=== PATIENT | female | born 1940 | race Caucasian/White ===

== ENCOUNTER 2018-09-04 00:06 | Observation (INO) | payer OTHER ==
--- OUTSIDE RECORDS SUMMARY | 2018-09-04 00:08 | XMS REPORT | Clinical Summary ---
:1940 Author Organization [facility] [employer] Address [address] [place] [address] Care Team Providers Name Role Phone Corazon Singh MD Primary Care Provider Allergies Active Allergy Reactions Severity Noted Date Comments Adhesive 07/12/2016 Rash, tears, Sulfa (Sulfonamide Antibiotics) 07/12/2016 Medications Medication Sig Dispensed Refills Start Date End Date Status lisinopril-hydrochlorot Take 1 tablet by 0 Active hiazide mouth daily. (PRINZIDE,ZESTORETIC) 10-12.5 mg per tablet lovastatin (MEVACOR) 20 Take 20 mg by 0 Active MG tablet mouth nightly. thyroid, pork, (ARMOUR Take 30 mg by 0 Active THYROID) 30 mg Tab mouth daily. levothyroxine Take 25 mcg by 0 Active (SYNTHROID, LEVOTHROID) mouth Every 25 MCG tablet morning on an empty stomach. bimatoprost (LUMIGAN) Place 1 drop into 0 Active 0.01 % Drop ophthalmic both eyes solution nightly. brimonidine-timolol 1 drop 2 (two) 0 Active (COMBIGAN) 0.2-0.5 % times daily. ophthalmic solution exemestane (AROMASIN) Take 25 mg by 0 Active 25 mg tablet mouth daily. multivitamin per tablet Take 1 tablet by 0 Active mouth daily. ferrous sulfate 325 (65 Take 325 mg by 0 Active FE) MG tablet mouth daily with breakfast. biotin 1 mg tablet Take 1,000 mcg by 0 Active mouth 3 (three) times daily. cranberry 500 mg Cap Take by mouth. 0 Active calcium Take 1 tablet by 0 Active carbonate-vitamin D3 mouth 2 (two) (CALCIUM-VITAMIN D) 500 times daily with mg(1,250mg) -200 unit breakfast and per tablet dinner. coenzyme Q10 100 mg Take 100 mg by 0 Active capsule mouth daily. cyanocobalamin (VITAMIN Take 1,000 mcg by 0 Active B-12) 1000 MCG tablet mouth daily. pyridoxine, vitamin B6, Take 100 mg by 0 Active (VITAMIN B-6) 100 MG mouth daily. tablet docusate sodium Take 100 mg by 0 Active (COLACE) 100 MG capsule mouth 2 (two) times daily. Active Problems Not on file Social History Tobacco Use Types Packs/Day Years Used Date Never Smoker Alcohol Use Drinks/Week oz/Week Comments No Sex Assigned at Date Recorded Not on file Job Start Date Occupation Industry Not on file Not on file Not on file Travel History Travel Start Travel End No recent travel history available. Last Filed Vital Signs Not on file Plan of Treatment Not on file Implants Implanted Type Area Ball Machine Operator Device Shelf Model / Identifier Expiration Serial / Lot Date [facility] [id number] - [id number] Ophthalmology Right: PHARMACIA & [id number] / Implanted: Qty: 1 on 07/12/2016 by Brad Duarte MD Eye [employer] [id number] / Halo Sterile Cornea Right: [employer] 11/18/2016 / Implanted: Qty: 1 on 07/12/2016 by Brad Duarte MD Eye [employer] [id number] / Results Not on fileafter 09/03/2017 Insurance Payer Benefit Plan / Group Subscriber ID Type Phone Address MEDICARE MEDICARE A B xxxxxxxxxxx Medicare MCR GENERIC MEDICARE xxxxxxxxxx Medigap SUPPLEMENT/INDIVIDUAL SUPPLEMENT
[2018-09-04] MEDS ORDERED: NA CHLORIDE 0.9% 1,000 ML ONE (01:13)
[2018-09-04] MEDS ORDERED: ONDANSETRON 4 MG/2 ML VIAL ONE ×2 (01:13→03:30)
[2018-09-04 01:16] LABS: Absolute Lymphocytes (CBC) 0.7 K/uL (0.7-4.9); Absolute Monocytes 0.4 K/uL (0.1-1.3); Absolute Neutrophil 11.6 K/uL (1.8-8.0); Basophils % 0.5 % (0-1.3); Eosinophils % 0.4 % (0-4.4); Hematocrit 42.2 % (36.0-45.0); Lymphocytes % 5.6 % (15.3-44.8); MPV 8.3 fL (7.6-11.3); Monocytes % 3.1 % (3.3-12.3); RBC Red Blood Cell Count 4.72 M/uL (3.86-4.86)
[2018-09-04 01:30] LABS: Albumin 3.7 g/dL (3.4-5.0); Bilirubin Direct 0.1 mg/dL (0-0.2); Bilirubin Total 0.4 mg/dL (0.2-1.0); Potassium 3.7 mmol/L (3.5-5.1); Protein, Total 7.9 g/dL (6.4-8.2)
[2018-09-04] MEDS ORDERED: KETOROLAC 30 MG/ML INJ ONE (01:46)
[2018-09-04 01:56] LABS: Blood Morphology Comment NOT SEEN (NOT SEEN); Platelet Estimate ADEQ; Urine White Blood Cell Casts OK
[2018-09-04] MEDS ORDERED: MORPHINE 4 MG/ML SYR ONE (03:30)
[2018-09-04] MEDS ORDERED: PIPER/TAZO/NS 3.375gm 3.375 GM/100 ML BAG ONE (03:46)
--- NOTE | 2018-09-04 03:56 | EDPHYS ---
Physician Documentation [facility] Name: Triny Nj Age: 77 yrs Sex: Female : 1940 Arrival Date: 09/04/2018 Time: 00:07 Bed 17 Private MD: Larry Biswas ED Physician Isaiah De Luna HPI: 09/04 00:58 This 77 yrs old Female presents to ER via Ambulatory with complaints of Flank kb Pain, Back Pain, Nausea, Dizziness. 00:58 The patient presents with abdominal pain in the right upper quadrant. Onset: The kb symptoms/episode began/occurred today, at 20:30. The symptoms do not radiate. Associated signs and symptoms: Pertinent positives: nausea. The symptoms are described as constant. Modifying factors: The symptoms are alleviated by nothing, the symptoms are aggravated by pressure. Severity of pain: At its worst the pain was moderate in the emergency department the pain is unchanged. The patient has not experienced similar symptoms in the past. The patient has not recently seen a physician. Historical: - Allergies: 00:50 Adhesives; jd3 00:50 MAGNESIUM SALT; jd3 00:50 Vancomycin; jd3 00:50 Bactrim; jd3 00:50 Sulfa (Sulfonamide Antibiotics); jd3 00:50 Nitrofurantoin Macrocrystal; jd3 00:50 MSG; jd3 - Home Meds: 00:50 [place] Thyroid 30 mg oral tab [Active]; Combigan [Active]; lovastatin 20 mg Oral tab 1 jd3 tab once daily [Active]; exemestane 25 mg Oral tab 1 tab once daily [Active]; levothyroxine oral .025 mcg [Active]; lisinopril 20 mg Oral tab 1 tab once daily [Active]; - PMHx: 00:50 Cancer, Breast; Hyperlipidemia; Hypertension; hyperthyroidism; jd3 - PSHx: 00:50 Mastectomy, Left; Mastectomy, Right; finger; drain in back of right eye; right hip; jd3 - Immunization history:: Adult Immunizations up to date. - Social history:: Smoking status: Patient/guardian denies using tobacco. - Ebola Screening: : Patient negative for fever greater than or equal to 101.5 degrees Fahrenheit, and additional compatible Ebola Virus Disease symptoms. ROS: 00:58 Constitutional: Negative for fever, chills, and weight loss, Neck: Negative for injury, kb pain, and swelling, Cardiovascular: Negative for chest pain, palpitations, and edema, Respiratory: Negative for shortness of breath, cough, wheezing, and pleuritic chest pain, Back: Negative for injury and pain, : Negative for injury, bleeding, discharge, and swelling, MS/Extremity: Negative for injury and deformity, Skin: Negative for injury, rash, and discoloration, Neuro: Negative for headache, weakness, numbness, tingling, and seizure. 00:58 Abdomen/GI: Positive for abdominal pain, nausea, Negative for vomiting, diarrhea, constipation, abdominal cramps, abdominal distension, anorexia. Exam: 00:58 Constitutional: This is a well developed, well nourished patient who is awake, alert, kb and in no acute distress. Head/Face: Normocephalic, atraumatic. ENT: Nares patent. No nasal discharge, no septal abnormalities noted. Tympanic membranes are normal and external auditory canals are clear. Oropharynx with no redness, swelling, or masses, exudates, or evidence of obstruction, uvula midline. Mucous membranes moist. Neck: Trachea midline, no thyromegaly or masses palpated, and no cervical lymphadenopathy. Supple, full range of motion without nuchal rigidity, or vertebral point tenderness. No Meningismus. Chest/axilla: Normal chest wall appearance and motion. Nontender with no deformity. No lesions are appreciated. Cardiovascular: Regular rate and rhythm with a normal S1 and S2. No gallops, murmurs, or rubs. Normal PMI, no JVD. No pulse deficits. Respiratory: Lungs have equal breath sounds bilaterally, clear to auscultation and percussion. No rales, rhonchi or wheezes noted. No increased work of breathing, no retractions or nasal flaring. Back: No spinal tenderness. No costovertebral tenderness. Full range of motion. Skin: Warm, dry with normal turgor. Normal color with no rashes, no lesions, and no evidence of cellulitis. MS/ Extremity: Pulses equal, no cyanosis. Neurovascular intact. Full, normal range of motion. Neuro: Awake and alert, GCS 15, oriented to person, place, time, and situation. Cranial nerves II-XII grossly intact. Motor strength 5/5 in all extremities. Sensory grossly intact. Cerebellar exam normal. Normal gait. 00:58 Abdomen/GI: Inspection: abdomen appears normal, Bowel sounds: normal, in all quadrants, Palpation: soft, in all quadrants, moderate abdominal tenderness, in the right upper quadrant. Vital Signs: 00:50 BP 173 / 112; Pulse 79; Resp 20 S; Temp 97.8(O); Pulse Ox 99% on R/A; Weight 86.18 kg jd3 (R); Height 5 ft. 7 in. (170.18 cm) (R); Pain 10/10; 02:50 BP 177 / 109; Pulse 75; Resp 17 S; Pulse Ox 98% on R/A; jd3 03:51 BP 181 / 105; Pulse 90; Resp 18; Pulse Ox 99% ; rr5 06:12 BP 181 / 104; Pulse 87; Resp 18 S; Pulse Ox 98% on R/A; jd3 07:39 BP 169 / 89; Pulse 80; Resp 17; Temp 97.8; Pulse Ox 99% on R/A; Pain 4/10; sg 00:50 Body Mass Index 29.76 (86.18 kg, 170.18 cm) jd3 00:50 blood pressues taken on lower right extremity due to EDSON misectomy. provider awair of jd3 high blood pressure, no new orders at this time. MDM: 00:48 Patient medically screened. kb 00:58 Data reviewed: vital signs, nurses notes. Data interpreted: Pulse oximetry: on room air kb is 99 %. Interpretation: normal. 09/04 00:48 Order name: Basic Metabolic Panel; Complete Time: 01:33 kb 09/04 00:48 Order name: CBC with Diff; Complete Time: 01:57 kb 09/04 00:48 Order name: Hepatic Function; Complete Time: 01:33 kb 09/04 00:48 Order name: Lipase; Complete Time: 01:33 kb 09/04 01:56 Order name: CBC Smear Scan; Complete Time: 01:57 EDMS 09/04 03:33 Order name: Urine Culture [facility] [place] 09/04 00:55 Order name: CT Stone Protocol; Complete Time: 15:09 jd3 09/04 04:44 Order name: US Abdomen Limited [facility] [place] 09/04 04:54 Order name: Urine Dipstick--Ancillary (enter results) ag4 09/04 05:07 Order name: Urine Dipstick-Ancillary; Complete Time: 07:15 EDMS 09/04 07:35 Order name: US; Complete Time: 15:09 EDMS 09/04 00:48 Order name: IV Saline Lock; Complete Time: 01:08 kb 09/04 00:48 Order name: Labs collected and sent; Complete Time: 01:08 kb 09/04 03:33 Order name: Urine Dipstick-Ancillary (obtain specimen); Complete Time: 03:35 arias 09/04 03:36 Order name: Urine Dipstick-Ancillary (obtain specimen); Complete Time: 06:15 jd3 Administered Medications: 01:08 Drug: NS 0.9% 1000 ml Route: IV; Rate: 1000 ml; Site: left hand; jd3 04:47 Follow up: Response: No adverse reaction; IV Status: Completed infusion jd3 01:08 Drug: Zofran 4 mg Route: IVP; Site: left hand; jd3 02:53 Follow up: Response: No adverse reaction jd3 04:46 Follow up: Response: No adverse reaction jd3 01:46 Drug: TORadol 30 mg Route: IVP; Site: left hand; jd3 02:53 Follow up: Response: No adverse reaction jd3 03:27 Drug: morphine 4 mg Route: IVP; Site: left hand; jd3 04:47 Follow up: Response: No adverse reaction jd3 03:27 Drug: Zofran 4 mg Route: IVP; Site: left hand; jd3 04:47 Follow up: Response: No adverse reaction jd3 03:50 Drug: Zosyn 3.375 grams Route: IVPB; Infused Over: 60 mins; Site: left hand; rr5 04:48 Follow up: Response: No adverse reaction; IV Status: Completed infusion; IV Intake: rr5 100ml Disposition: 03:56 Co-signature as Attending Physician, Isaiah De Luna MD I agree with the assessment and arias plan of care. Disposition: 09/04/18 03:55 Hospitalization ordered by Cecy Rashid for Observation. Preliminary diagnosis are Upper abdominal pain, unspecified, Cholelithiasis, Elevated white blood cell count, Essential (primary) hypertension, Cholecystitis. - Bed requested for Telemetry/MedSurg (observation). - Status is Observation. eb - Condition is Stable. - Problem is new. - Symptoms have improved. UTI on Admission? No Signatures: Dispatcher [employer] EDMS Pia Oro, TELEPHONE SALES REPRESENTATIVE-C TELEPHONE SALES REPRESENTATIVE-Ckb Shell Rangel RN Isaiah Loo MD MD cha Davies, Jonathon RN RN jd3 Jazmine Sebastian Raymond, RN RN rr5 Corrections: (The following items were deleted from the chart) 04:24 03:55 Hospitalization Ordered by Cecy Rashid MD for Observation. Preliminary diagnosis is Upper abdominal pain, unspecified; Cholelithiasis; Elevated white blood cell count. Bed requested for Telemetry/MedSurg (observation). Status is Observation. Condition is Stable. Problem is new. Symptoms have improved. UTI on Admission? No. arias 07:20 04:24 09/04/2018 03:55 Hospitalization Ordered by Cecy Rashid MD for Observation. arias Preliminary diagnosis is Upper abdominal pain, unspecified; Cholelithiasis; Elevated white blood cell count. Bed requested for Telemetry/MedSurg (observation). Status is Observation. Condition is Stable. Problem is new. Symptoms have improved. UTI on Admission? No. bharath 07:46 07:20 09/04/2018 03:55 Hospitalization Ordered by Cecy Rashid MD for Observation. arias Preliminary diagnosis is Upper abdominal pain, unspecified; Cholelithiasis; Elevated white blood cell count; Essential (primary) hypertension. Bed requested for Telemetry/MedSurg (observation). Status is Observation. Condition is Stable. Problem is new. Symptoms have improved. UTI on Admission? No. arias 07:52 07:46 09/04/2018 03:55 Hospitalization Ordered by Cecy Rashid MD for Observation. eb Preliminary diagnosis is Upper abdominal pain, unspecified; Cholelithiasis; Elevated white blood cell count; Essential (primary) hypertension; Cholecystitis. Bed requested for Telemetry/MedSurg (observation). Status is Observation. Condition is Stable. Problem is new. Symptoms have improved. UTI on Admission? No. arias
--- NOTE | 2018-09-04 03:56 | ER ---
Nurse's Notes [facility] Name: Triny Nj Age: 77 yrs Sex: Female : 1940 Arrival Date: 09/04/2018 Time: 00:07 Bed 17 Private MD: Larry Biswas Diagnosis: Upper abdominal pain, unspecified;Cholelithiasis;Elevated white blood cell count;Essential (primary) hypertension;Cholecystitis Presentation: 09/04 00:39 Presenting complaint: Patient states: "I am having horrible pain in my stomach and I am jd3 so nauseous, I have never had a gal bladder attach, but I think this might it. I took some oral Zofran about 4 hours ago and nothing is helping.". Transition of care: patient was not received from another setting of care. Onset of symptoms was September 04, 2018. Risk Assessment: Do you want to hurt yourself or someone else? Patient reports no desire to harm self or others. Initial Sepsis Screen: Does the patient meet any 2 criteria? No. Patient's initial sepsis screen is negative. Does the patient have a suspected source of infection? No. Patient's initial sepsis screen is negative. Care prior to arrival: None. 00:39 Method Of Arrival: Ambulatory jd3 00:39 Acuity: YUDITH 3 jd3 Historical: - Allergies: 00:50 Adhesives; jd3 00:50 MAGNESIUM SALT; jd3 00:50 Vancomycin; jd3 00:50 Bactrim; jd3 00:50 Sulfa (Sulfonamide Antibiotics); jd3 00:50 Nitrofurantoin Macrocrystal; jd3 00:50 MSG; jd3 - Home Meds: 00:50 [place] Thyroid 30 mg oral tab [Active]; Combigan [Active]; lovastatin 20 mg Oral tab 1 jd3 tab once daily [Active]; exemestane 25 mg Oral tab 1 tab once daily [Active]; levothyroxine oral .025 mcg [Active]; lisinopril 20 mg Oral tab 1 tab once daily [Active]; - PMHx: 00:50 Cancer, Breast; Hyperlipidemia; Hypertension; hyperthyroidism; jd3 - PSHx: 00:50 Mastectomy, Left; Mastectomy, Right; finger; drain in back of right eye; right hip; jd3 - Immunization history:: Adult Immunizations up to date. - Social history:: Smoking status: Patient/guardian denies using tobacco. - Ebola Screening: : Patient negative for fever greater than or equal to 101.5 degrees Fahrenheit, and additional compatible Ebola Virus Disease symptoms. Screenin:51 Abuse screen: Denies threats or abuse. Nutritional screening: No deficits noted. jd3 Tuberculosis screening: No symptoms or risk factors identified. Fall Risk Ambulatory Aid- None/Bed Rest/Nurse Assist (0 pts). Gait- Normal/Bed Rest/Wheelchair (0 pts) Mental Status- Oriented to own ability (0 pts). Total Alvares Fall Scale indicates No Risk (0-24 pts). Assessment: 00:52 General: Appears uncomfortable, Behavior is cooperative, appropriate for age, anxious. jd3 Pain: Complains of pain in epigastric area and right upper quadrant Quality of pain is described as sharp. Neuro: Level of Consciousness is awake, alert, obeys commands, Oriented to person, place, time, situation, Appropriate for age. Cardiovascular: Capillary refill < 3 seconds Patient's skin is warm and dry. Respiratory: Airway is patent Respiratory effort is even, unlabored, Respiratory pattern is regular, symmetrical. GI: Abdomen is round Bowel sounds present X 4 quads. Abd is soft Abdomen is tender to palpation in epigastric area, right upper quadrant and right lower quadrant. : No signs and/or symptoms were reported regarding the genitourinary system. EENT: No signs and/or symptoms were reported regarding the EENT system. Derm: Skin is intact, Skin is diaphoretic, Skin is pale, Skin temperature is warm. Musculoskeletal: Circulation, motion, and sensation intact. Range of motion: intact in all extremities. 01:50 Reassessment: Patient appears in no apparent distress at this time. No changes from jd3 previously documented assessment. Patient and/or family updated on plan of care and expected duration. Pain level reassessed. Patient is alert, oriented x 3, equal unlabored respirations, skin warm/dry/pink. 02:50 Reassessment: Patient appears in no apparent distress at this time. No changes from jd3 previously documented assessment. Patient and/or family updated on plan of care and expected duration. Pain level reassessed. Patient is alert, oriented x 3, equal unlabored respirations, skin warm/dry/pink. 03:30 Reassessment: Patient appears in no apparent distress at this time. Patient and/or jd3 family updated on plan of care and expected duration. Pain level reassessed. Patient is alert, oriented x 3, equal unlabored respirations, skin warm/dry/pink. 04:08 Reassessment: Patient appears in no apparent distress at this time. Patient and/or jd3 family updated on plan of care and expected duration. Pain level reassessed. Patient is alert, oriented x 3, equal unlabored respirations, skin warm/dry/pink. 06:08 Reassessment: Patient appears in no apparent distress at this time. Patient and/or jd3 family updated on plan of care and expected duration. Pain level reassessed. Patient is alert, oriented x 3, equal unlabored respirations, skin warm/dry/pink. attempted to call report, nurse unavailable at this time. 07:06 Reassessment: Patient appears in no apparent distress at this time. Patient and/or sg family updated on plan of care and expected duration. Pain level reassessed. Patient is alert, oriented x 3, equal unlabored respirations, skin warm/dry/pink. reports nausea, will check admission orders for order for antinausea medication, pt stated understanding, will continue to monitor Patient states symptoms have not improved. Vital Signs: 00:50 BP 173 / 112; Pulse 79; Resp 20 S; Temp 97.8(O); Pulse Ox 99% on R/A; Weight 86.18 kg jd3 (R); Height 5 ft. 7 in. (170.18 cm) (R); Pain 10/10; 02:50 BP 177 / 109; Pulse 75; Resp 17 S; Pulse Ox 98% on R/A; jd3 03:51 BP 181 / 105; Pulse 90; Resp 18; Pulse Ox 99% ; rr5 06:12 BP 181 / 104; Pulse 87; Resp 18 S; Pulse Ox 98% on R/A; jd3 07:39 BP 169 / 89; Pulse 80; Resp 17; Temp 97.8; Pulse Ox 99% on R/A; Pain 4/10; sg 00:50 Body Mass Index 29.76 (86.18 kg, 170.18 cm) jd3 00:50 blood pressues taken on lower right extremity due to EDSON misectomy. provider awair of jd3 high blood pressure, no new orders at this time. ED Course: 00:07 Patient arrived in ED. al2 00:07 Larry Biswas MD is Private Physician. al2 00:39 Vern Ramachandran, RN is Primary Nurse. jd3 00:42 Triage completed. jd3 00:48 [facility]ia [facility] F[facility]-C [facility]. kb 00:48 Isaiah De Luna MD is Attending Physician. kb 00:51 Arm band placed on. EKG completed in triage. Results shown to MD. jd3 00:51 Patient has correct armband on for positive identification. Placed in gown. Bed in low jd3 position. Call light in reach. Side rails up X2. 01:[address] via stretcher. kw1 01:35 CT Stone Protocol In Process Unspecified. EDMS 01:35 CT completed. Patient tolerated procedure well. Patient moved back from CT. kw1 01:44 Inserted saline lock: 22 gauge in left hand, using aseptic technique. Blood collected. gm 01:44 Initial lab(s) drawn, by ri, sent to lab. gm 03:54 Cecy Rashid MD is Hospitalizing Provider. [facility] 07:01 No provider procedures requiring assistance completed. Patient admitted, IV remains in sg place. intact, No redness/swelling at site. 07:06 Primary Nurse role handed off by Vern Ramachandran RN 07:06 Edmar Judge, SARAHI is Primary Nurse. sg Administered Medications: 01:08 Drug: NS 0.9% 1000 ml Route: IV; Rate: 1000 ml; Site: left hand; jd3 04:47 Follow up: Response: No adverse reaction; IV Status: Completed infusion jd3 01:08 Drug: Zofran 4 mg Route: IVP; Site: left hand; jd3 02:53 Follow up: Response: No adverse reaction jd3 04:46 Follow up: Response: No adverse reaction jd3 01:46 Drug: TORadol 30 mg Route: IVP; Site: left hand; jd3 02:53 Follow up: Response: No adverse reaction jd3 03:27 Drug: morphine 4 mg Route: IVP; Site: left hand; jd3 04:47 Follow up: Response: No adverse reaction jd3 03:27 Drug: Zofran 4 mg Route: IVP; Site: left hand; jd3 04:47 Follow up: Response: No adverse reaction jd3 03:50 Drug: Zosyn 3.375 grams Route: IVPB; Infused Over: 60 mins; Site: left hand; rr5 04:48 Follow up: Response: No adverse reaction; IV Status: Completed infusion; IV Intake: rr5 100ml Intake: 04:48 IV: 100ml; Total: 100ml. rr5 Outcome: 03:55 Decision to Hospitalize by Provider. arias 07:48 Admitted to Med/surg accompanied by tech, family with patient, via wheelchair, with sg chart, Report called to sarahi gonzáles 07:48 Condition: good sg 07:48 Instructed on the need for admit, safety practices, Demonstrated understanding of instructions. 07:52 Patient left the ED. eb Signatures: Dispatcher [employer] EDMS Pia Oro, DAISHA FERREIRA-Edmar Jackson, RN RN Isaiah Amezquita MD MD cha Davies, Jonathon, RN RN jd3 Jane Sorto Angelica al2 Botello, Elizabeth eb Roque, Raymond RN RN rr5 Yumiko Mclain gm Corrections: (The following items were deleted from the chart) 03:02 02:50 BP 175 / 111; Pulse 75bpm; Resp 17bpm; Spontaneous; Pulse Ox 98% RA; jd3 jd3 04:02 03:51 BP 143 / 71; Pulse 76bpm; Resp 14bpm; Pulse Ox 99%; rr5 rr5 06:15 00:50 BP 173 / 112; Pulse 79bpm; Resp 20bpm; Spontaneous; Pulse Ox 99% RA; Temp 97.8F jd3 Oral; 86.18 kg Reported; Height 5 ft. 7 in. Reported; BMI: 29.7; Pain 10/10; jd3
[2018-09-04 05:07] LABS: Urine Glucose TRACE (NEG); Urine Specific Gravity 1.015 (1.005-1.030)
[2018-09-04 05:09] LABS: Urine Blood TRACE (NEG); Urine Protein NEGATIVE (NEG)
--- NOTE | 2018-09-04 05:57 | P.HP ---
Certification for Inpatient Patient admitted to: Observation With expected LOS: <2 Midnights Practitioner: I am a practitioner with admitting privileges, knowledge of patient current condition, hospital course, and medical plan of care. Services: Services provided to patient in accordance with Admission requirements found in Title 42 Section 412.3 of the Code of Federal Regulations Patient History Date of Service: 09/04/18 Reason for admission: cholelithiasis History of Present Illness: Ms Nj is a 77 years old woman with history of breast cancer, HTN, hyoperthyroidism, who start with RUQ abdominal pain 06/06, after have dinner last night. She denied fever or chills. She had also nausea and vomiting. She knew that has gallstones since 3 years ago. Lab work was remarkable for leukocytosis, normal liver function test, no fever. CT abd/pelvis consistent with cholelithiasis. At my encounter the patient was still nauseated and had some residual abdominal pain despite pain medication. Allergies adhesive Allergy (Verified 12/18/14 16:18) Rash propoxyphene HCl [From Darvon] Allergy (Verified 12/18/14 16:18) Nausea/Vomiting Sulfa (Sulfonamide Antibiotics) Allergy (Verified 12/18/14 16:18) Rash sulfamethoxazole [From Bactrim] Allergy (Unverified 04/03/16 19:25) Unknown trimethoprim [From Bactrim] Allergy (Unverified 04/03/16 19:25) Unknown vancomycin Allergy (Verified 12/18/14 16:18) Hives/Rash Adhesives Allergy (Uncoded 04/03/16 19:25) Unknown MAGNESI Allergy (Uncoded 04/03/16 19:25) Unknown msg Adverse Reaction (Uncoded 10/23/15 10:28) N/V increased temp Home Medications: Bimatoprost [Lumigan Opthalmic Drops*] 2.5 ml OP DAILY 12/18/14 Brimonidine Tartrate/Timolol [Combigan 0.2%-0.5% Eye Drops] 5 ml OP BID Levothyroxine [Synthroid*] 25 mcg PO [id number] 12/18/14 Lisinopril/Hydrochlorothiazide [Zestoretic 10-12.5 mg Tablet] 1 each PO DAILY WITH BREAKFAST 12/18/14 Lovastatin [Mevacor*] 20 mg PO BEDTIME 12/18/14 Thyroid Tab [Inman Thyroid*] 30 mg PO DAILY 12/18/14 - Past Medical/Surgical History Diabetic: No -: cellulitis -: breast cancer -: hyperthyroidism -: HTN -: lumpectomy -: bilateral beast sx -: hip replacement -: vaginal external ca sx -: finger sx -: cataract sx and torn retina -: laser sx for glaucoma - Family History Father -: Hypertension, Other (see notes) Notes: parkinsons - Social History Smoking Status: Never smoker Alcohol use: No CD- Drugs: No Caffeine use: Yes Place of Residence: Home Review of Systems 10-point ROS is otherwise unremarkable Physical Examination - Physical Exam General: Alert, In no apparent distress HEENT: Atraumatic, PERRLA, Mucous membr. moist/pink, EOMI, Sclerae nonicteric Neck: Supple, 2+ carotid pulse no bruit, No LAD, Without JVD or thyroid abnormality Respiratory: Clear to auscultation bilaterally, Normal air movement Cardiovascular: Regular rate/rhythm, Normal S1 S2 Gastrointestinal: Normal bowel sounds, Tenderness (RUQ to palpation) Musculoskeletal: No tenderness Integumentary: No rashes Neurological: Normal speech, Normal strength at 5/5 x4 extr, Normal tone, Normal affect Lymphatics: No axilla or inguinal lymphadenopathy - Studies Laboratory Data (last 24 hrs) 09/04/18 01:06: WBC 12.8 H, Hgb 14.0, Hct 42.2, Plt Count 244 09/04/18 01:06: Sodium 140, Potassium 3.7, BUN 21 H, Creatinine 0.74, Glucose 145 H, Total Bilirubin 0.4, AST 15, ALT 29, Alkaline Phosphatase 80, Lipase 145 Assessment and Plan - Problems (Diagnosis) (1) Cholelithiasis Current Visit: Yes Status: Acute Qualifiers: Cholelithiasis location: gallbladder Cholecystitis presence: without cholecystitis Biliary obstruction: without biliary obstruction Qualified Code(s): K80.20 - Calculus of gallbladder without cholecystitis without obstruction (2) HTN (hypertension) Current Visit: Yes Status: Acute Qualifiers: Hypertension type: essential hypertension Qualified Code(s): I10 - Essential (primary) hypertension (3) Hyperthyroidism Current Visit: Yes Status: Acute - Plan Will admit the patient due to symptomatic cholelithiasis, pending abdominal US, no signs of biliary obstuction, howeve, will star empiric IV antibiotics for possible early cholecystitis. Consult Dr Eastman. - Advance Directives Does patient have a Living Will: Yes Does patient have a Durable POA for Healthcare: Yes - Code Status/Comfort Care Code Status Assessed: Yes Code Status: Full Code
--- NOTE | 2018-09-04 07:34 | RAD REPORT ---
EXAM DESCRIPTION: US - Abdomen Exam Limited - 09/04/2018 7:00 am CLINICAL HISTORY: Abdominal pain. FINDINGS: Multiple gallstones. Gallbladder wall appears borderline thickened The biliary tree is normal caliber. IMPRESSION: Cholelithiasis. Borderline gallbladder wall thickening
--- NOTE | 2018-09-04 07:34 | EKG ---
Test Date: 2018-09-04 Test Time: 00:48:50 Maintenance Service Supervisor: MARY MEASUREMENT RESULTS: Intervals: Rate: 77 NH: 164 QRSD: 88 QT: 392 QTc: 443 [place]: P: 52 NH: 164 QRS: -28 T: 10 INTERPRETIVE STATEMENTS: Normal sinus rhythm Cannot rule out Anterior infarct, age undetermined Abnormal ECG Compared to ECG 04/17/2015 06:26:07 questionable Myocardial infarct finding now present Electronically Signed On 09-04-18 07:34:09 [employer]ACK [employer]ADES by Roby Martin
[2018-09-04] MEDS ORDERED: ONDANSETRON 4 MG/2 ML VIAL IV PRN (08:29)
[2018-09-04] MEDS: MORPHINE 4 MG/ML SYR IV PRN ×3 (09:04→20:31)
[2018-09-04] MEDS: NA CHLORIDE 0.9% 1,000 ML IV SCH ×2 (09:05→20:30)
[2018-09-04] MEDS: CIPROFLOXACIN 400mg IV 400 MG/200 ML BAG IV SCH ×2 (09:06→20:31)
[2018-09-04] MEDS: METRONIDAZOLE 500mg IVPB 500 MG/100 ML BAG IV SCH ×2 (09:06→16:54)
--- NOTE | 2018-09-04 10:28 | RAD REPORT ---
EXAM DESCRIPTION: CT - Stone Protocol - 09/04/2018 5:54 am CLINICAL HISTORY: Abdominal pain. Nausea COMPARISON: None. TECHNIQUE: Computed axial tomography of the abdomen pelvis was obtained without oral or IV contrast. Lack of IV and oral contrast limits evaluation of solid organs, bowel, and vessels. Coronal reformat heidi images were obtained and reviewed. Preliminary report generated by virtual radiologic and review ed prior to dictation All CT scans are performed using dose optimization technique as appropriate and may include automated exposure control or mA/KV adjustment according to patient size. FINDINGS: Multiple gallstones. Gallbladder wall appears borderline thickened. Biliary tree normal ca liber. A renal calculus is not seen. An ureteral calculus is not noted. A bladder calculus is not present. S mall low-density lesions within the spleen are nonspecific without IV contrast. The 24 millimeter mil dly hyperdense mass is present within the lower pole right kidney The liver, spleen, pancreas and adrenals appear grossly normal There is no evidence of diverticulitis. The appendix appears normal 5 millimeter right middle lobe nodule Small umbilical hernia contains fat Mild anterior subluxation of L3 on L4. Minimal posterior subluxation L4 on L5. Lumbar spondylosis IMPRESSION: Negative for a genitourinary calculus 5 millimeter right middle lobe nodule. Per Fleischner guidelines if patient is high risk follow up CT chest in 1 year recommended Renal masses. Ultrasound recommended Cholelithiasis. Gallbladder wall appears borderline thickened
[2018-09-04 10:51] VITALS: BMI 29.7
[2018-09-04] MEDS ORDERED: NA CHLORIDE 0.9% 0 ML ONE (12:26)
[2018-09-04] MEDS ORDERED: KCL 20 MEQ/100 mL IVPB 20 MEQ/100 ML BAG IV SCH (13:00)
[2018-09-04 14:46] LABS: Urine Appearance CLEAR; Urine Bilirubin NEGATIVE (NEG); Urine Blood 1+ (NEG); Urine Color YELLOW; Urine Glucose TRACE (NEG); Urine Protein 1+ (NEG); Urine Specific Gravity 1.025 (1.005-1.030); Urine Urobilinogen 0.2 mg/dL (0.2-1.0)
[2018-09-04 14:48] LABS: Urine Microscopic Reflex ORDER UMIC
[2018-09-04 14:55] LABS: Urine Bacteria <20 /HPF (<20); Urine Culture Reflex Order NOT NEEDED; Urine Mucus 2+ /HPF (NONE SEEN)
--- NOTE | 2018-09-04 15:31 | P.PN ---
Date of Service: 09/04/18 Patient seen and examined at bedside with RN. Chart reviewed. Case discussed with general surgery. Patient initially EKG on admission with abnormal reading. Cardiology consulted. Previous EKG with similar appearance. No acute PR. Patient remains chest free. Cardiology clearance obtained for her surgery tomorrow. Continue with IV antibiotics at this time. Surgery notified of cardiology clearance as well. NPO for right now.
--- NOTE | 2018-09-04 16:10 | CON ---
Date of Consultation: 09/04/2018 Reason For Service: Acute cholecystitis, symptomatic cholelithiasis. History Of Present Illness: This is a case of a 77-year-old patient, admitted today with epigastric upper quadrant pain radiating to the back associated with nausea and vomiting. Patient does not asuncion mber any pain like this before. She denies any dysuria, hematuria, hematochezia, or melena. Denies any recent traveling out of the country. Denies any family member sick at home. The patient has his tory of bilateral breast cancer, 2 different locations. Last time it was left side. For the first t trav in the right side, patient received radiation and chemotherapy and lumpectomy, and for the left s courtney she only received radiation and lumpectomy. Allergies: BACTRIM. Social History: She does not smoke. She does not drink alcohol. Apparent Medical Problems: As above. Surgeries: Includes as above; also a finger surgery and cataract surgery. Review of Systems: Ten points otherwise remarkable. Physical Examination: General: The patient is awake and alert. No distress. HEENT: Pupils are equal, round, reactive. Anicteric. Neck: Supple. Chest: Clear. Abdomen: Soft and depressible. There is epigastric right upper quadrant tenderness with Sandoval sign positive. The rest of the abdomen is soft and depressible. Breasts: Deferred. Rectal: Deferred. Pelvic: Deferred. Extremities: Good capillary refill. Laboratory Data: Blood work shows WBC count of 12.8 with hemoglobin of 14 and platelets of 244 with a potassium 3.7, and glucose 145. Assessment: A 77-year-old patient with acute cholecystitis, symptomatic cholelithiasis. The patient is getting a medical clearance. The benefits, alternatives, and risks of laparoscopic, possible ope n cholecystectomy fully explained which include but are not limited to infection, bleeding, damage to adjacent structures, anesthesia complications, choledocholithiasis, bile leak, pancreatitis, myocard ial infarction, and even . She also understands this may not relieve any symptoms. She might n eed more than one surgical intervention. She understood. We will keep her n.p.o., IV antibiotics, I V fluid. We are going to proceed with surgery once she is medically clear. MARY ANNE/SVEN Voice ID: [id number] Report ID: [id number]
[2018-09-04] MEDS ORDERED: HOME MED 1 EA UNK (Brimonidine Tartrate/Timolol [Combigan 0.2%-0.5% Eye Drops] 1 DROP) EACH EYE SCH (21:00)
[2018-09-04] MEDS: HYDRALAZINE HCL 20 MG/ML VIAL IV PRN (22:42)
--- NOTE | 2018-09-04 22:57 | EKG ---
Test Date: 2018-09-04 Test Time: 12:07:22 [employer] Purifier: CAREN MEASUREMENT RESULTS: Intervals: Rate: 99 MO: 160 QRSD: 84 QT: 370 QTc: 474 [place]: P: 52 MO: 160 QRS: -27 T: 9 INTERPRETIVE STATEMENTS: Normal sinus rhythm Anterior infarct, age undetermined Abnormal ECG Compared to ECG 09/04/2018 00:48:50 No significant changes Electronically Signed On 09-04-18 22:57:19 DIRECTOR OF MATERIALS MANAGEMENT by Roby Martin
[2018-09-05] MEDS: METRONIDAZOLE 500mg IVPB 500 MG/100 ML BAG IV SCH ×3 (01:10→16:56)
[2018-09-05] MEDS ORDERED: ACETAMINOPHEN 500 MG TAB PO ONE (03:49)
[2018-09-05] MEDS: NA CHLORIDE 0.9% 1,000 ML IV SCH ×2 (04:29→14:29)
[2018-09-05] MEDS: HYDRALAZINE HCL 20 MG/ML VIAL IV PRN (04:38)
[2018-09-05 06:15] LABS: Absolute Lymphocytes (CBC) 0.7 K/uL (0.7-4.9); Absolute Monocytes 1.4 K/uL (0.1-1.3); Absolute Neutrophil 17.5 K/uL (1.8-8.0); Basophils % 0.4 % (0-1.3); Eosinophils % 0.2 % (0-4.4); Hematocrit 42.5 % (36.0-45.0); Lymphocytes % 3.3 % (15.3-44.8); MPV 8.7 fL (7.6-11.3); RBC Red Blood Cell Count 4.74 M/uL (3.86-4.86)
[2018-09-05 06:24] LABS: Albumin 3.3 g/dL (3.4-5.0); Bilirubin Total 1.1 mg/dL (0.2-1.0); Potassium 3.9 mmol/L (3.5-5.1); Protein, Total 7.5 g/dL (6.4-8.2)
[2018-09-05] MEDS ORDERED: KCL 20 MEQ/100 mL IVPB 20 MEQ/100 ML BAG IV SCH (07:00)
[2018-09-05 07:10] LABS: Blood Morphology Comment NOT SEEN (NOT SEEN); Platelet Estimate ADEQ
[2018-09-05] MEDS: CIPROFLOXACIN 400mg IV 400 MG/200 ML BAG IV SCH ×2 (08:15→20:05)
[2018-09-05] MEDS ORDERED: ACETAMINOPHEN 650MG/RECT SUPP PR PRN (09:06)
[2018-09-05] MEDS ORDERED: Ringers Lactate 1,000 ML IV ONE (11:20)
[2018-09-05] MEDS ORDERED: MIDAZOLAM HCL 2 MG/2 ML INJ ONE (11:29)
[2018-09-05] MEDS ORDERED: PROPOFOL 200 MG/20 ML VIAL IV ONE (11:29)
[2018-09-05] MEDS ORDERED: ROCURONIUM 50 MG/5 ML VIAL IV ONE (11:30)
[2018-09-05] MEDS ORDERED: FENTANYL CITR 100 MCG/2 ML ONE ×2 (11:30→12:50)
[2018-09-05] MEDS ORDERED: LIDOCAINE 1% MPF 5 ML VIAL ONE (11:30)
[2018-09-05] MEDS ORDERED: KETOROLAC 30 MG/ML INJ ONE (12:29)
[2018-09-05] MEDS ORDERED: GLYCOPYRROLATE 0.2 MG/ML SYR ONE (12:29)
[2018-09-05] MEDS ORDERED: ONDANSETRON 4 MG/2 ML VIAL ONE (12:30)
[2018-09-05] MEDS ORDERED: NEOSTIGMINE 1 MG/ML -5 ML SYRINGE ONE (12:30)
[2018-09-05] MEDS ORDERED: DEXAMETHASONE 10 MG/ML VIAL ONE (12:51)
--- NOTE | 2018-09-05 13:42 | P.PN ---
Subjective Date of Service: 09/05/18 Primary Care Provider: Dr. Amaral Chief Complaint: cholelithiasis Subjective: Improving Physical Examination - Vital Signs Temperature: 98.3 F Blood Pressure: 155/81 Pulse: 83 Respirations: 20 Pulse Ox (%): 100 - Physical Exam General: Alert, In no apparent distress, Oriented x3, Cooperative HEENT: Atraumatic Neck: Supple Respiratory: Clear to auscultation bilaterally, Normal air movement Cardiovascular: Normal pulses, Regular rate/rhythm Gastrointestinal: Normal bowel sounds, Soft and benign, Non-distended, No masses , No rebound, No guarding, Tenderness (Less pain to the right upper quadrant region) Musculoskeletal: No erythema, No tenderness, No warmth Integumentary: No tenderness/swelling, No erythema, No warmth, No cyanosis Neurological: Normal speech, Normal strength at 5/5 x4 extr, Normal tone - Studies Medications List Reviewed: Yes Assessment & Plan Discharge Plan: Home Plan to discharge in: 24 Hours Physician Review Additional Text: Impression: Acute cholecystitis with cholelithiasis Hypertension Hypothyroidism Plan: Acute cholecystitis with cholelithiasis: Spoke with surgery. Surgery is planned for today. Await findings. Continue current treatment. Hypertension: Will provide medication as needed. Hypothyroidism: Will restart home medication. Time Spent Managing Pts Care (In Minutes): 55
[2018-09-05] MEDS ORDERED: HYDROCODONE/APAP 7.5/325 MG TAB PO PRN (13:45)
--- NOTE | 2018-09-05 13:50 | P.BOP ---
Preoperative diagnosis: acute cholecystitis, symptomatic cholelithiasis, incarcerated umbilical her Postoperative diagnosis: same Primary procedure: 1. Laparoscopic cholecystectomy Secondary procedure: 2. Open repair of incarcerated umbilical hernia Estimated blood loss: <20cc Specimen: gb Findings: as above Anesthesia: General Complications: None Transferred to: Recovery Room Condition: Good
[2018-09-05] MEDS ORDERED: MEPERIDINE HCL 25 MG/0.5 ML ONE (13:55)
[2018-09-06] MEDS: METRONIDAZOLE 500mg IVPB 500 MG/100 ML BAG IV SCH ×2 (00:28→07:58)
[2018-09-06] MEDS: NA CHLORIDE 0.9% 1,000 ML IV SCH ×2 (00:28→10:29)
--- NOTE | 2018-09-06 01:33 | OP ---
Date of Procedure: 09/05/2018 Surgeon: Terell Eastman MD Preoperative Diagnoses: 1.Acute cholecystitis. 2.Symptomatic cholelithiasis. 3.Incarcerated umbilical hernia. Postoperative Diagnoses: 1.Acute cholecystitis. 2.Symptomatic cholelithiasis. 3.Incarcerated umbilical hernia. Procedures: 1.Laparoscopic cholecystectomy. 2.Open repair of incarcerated umbilical hernia. Anesthesia: General plus local. Findings: Acute cholecystitis with thickened gallbladder wall. The patient also had incarcerated om entum and umbilical hernia. Indications: This is a case of a female who came to us with Sandoval sign positive, acute cholecystiti s, and diagnosed with acute cholecystitis, symptomatic cholelithiasis, and incarcerated umbilical her bg. Procedure of laparoscopic, possible open cholecystectomy, and open repair of incarcerated umbil ical hernia fully explained to the patient, which include but are not limited to infection, bleeding, damage to adjacent structures, anesthesia complications, cholelithiasis, bile leak, pancreatitis, ID , and even . She also understands this may not relieve any symptoms. She might need more than one surgical intervention. She also understands the chance of recurrence of the hernia. She signed a consent. Description Of Procedure: The patient was brought to the operating room, placed in supine position. Anesthesia was done without complication. Abdominal area was prepped and draped in usual sterile fa shion. Marcaine 0.5% was injected for local anesthetic, followed by sharp incision of the skin in th e infraumbilical region. Incision was carried down to the subcutaneous tissue. We noticed a large h ernia with incarcerated omentum on it. Carefully, the hernia sac was identified and opened. Omentum seemed to be intact. So, we reduced it back into the abdominal cavity after releasing some adhesion s. The hernia sac was removed. The fascia edges were cleaned. At that moment, we proceeded to plac e a Jacinto trocar on that area after putting Vicryl #1 inside the fascia. I now obtained pneumoperit oneum. We placed 3 more trocars in the right upper quadrant under direct visualization. The gallbla dder was seen inflated and distended. We proceeded to aspirate the gallbladder with an Endo needle u nder direct visualization. A grasper was placed in the fundus of the gallbladder, another grasper in the infundibulum, retracted the gallbladder in the inferolateral fashion exposing the triangle of Ca lot, obtaining critical view of safety. The cystic duct and cystic artery were clearly isolated free circumferentially, and a connection between those and the gallbladder was clearly identified. I pro ceeded to ligate those by using at least 3 clips proximal and 1 clip distal, ligation in middle. Anjum e was done with the cystic artery. The gallbladder was removed from liver using Bovie cauterizer and removed from abdominal cavity using an EndoCatch through the umbilical incision. The area was inspe cted once again. No bile leak. No bleeding. Clips were intact. No bleeding. At that moment, I pr oceeded to remove the trocars under direct vision, deflated pneumoperitoneum, closed the fascia with #1 Vicryl, irrigated subcutaneous tissue, closed that with 3-0 chromic and skin with erma. Sponge counts and instrument counts were correct. The umbilical hernia was repaired by using #1 Vicryl in a [id number] fashion multiple times. The patient tolerated the procedure well. The patient was sent to recovery in stable condition. MARY ANNE/SVEN Voice ID: [id number] Report ID: [id number]
[2018-09-06 07:52] LABS: Magnesium 2.2 mg/dL (1.8-2.4); Potassium 4.4 mmol/L (3.5-5.1)
[2018-09-06] MEDS: CIPROFLOXACIN 400mg IV 400 MG/200 ML BAG IV SCH (07:59)
[2018-09-06] MEDS ORDERED: hydroCHLOROthiazide 12.5 MG CAP PO SCH (09:00)
[2018-09-06] MEDS ORDERED: EXEMESTANE 25 MG PO SCH (09:00)
[2018-09-06] MEDS ORDERED: LISINOPRIL 20 MG TAB PO SCH (09:00)
[2018-09-06] MEDS ORDERED: HOME MED 1 EA UNK (Lisinopril/Hydrochlorothiazide [Lisinopril-Hctz 20-12.5 Mg Tab] 1 TAB) PO SCH (09:00)
[2018-09-06] MEDS ORDERED: DOCUSATE NA 100 MG CAP PO SCH (09:00)
[2018-09-06 09:11] VITALS: TEMP 98
[2018-09-06 10:12] VITALS: O2SAT 99
--- NOTE | 2018-09-06 11:20 | P.DS ---
Admission Date: 09/04/18 Discharge Date: 09/06/18 Primary Care Provider: Dr. Amaral Disposition: ROUTINE DISCHARGE Discharge Condition: GOOD Reason for Admission: cholelithiasis Consultations: Surgery-Dr. Eastman Procedures: CT scan: COMPARISON: None. TECHNIQUE: Computed axial tomography of the abdomen pelvis was obtained without oral or IV contrast. Lack of IV and oral contrast limits evaluation of solid organs, bowel, and vessels. Coronal reformatted images were obtained and reviewed. Preliminary report generated by [employer] and reviewed prior to dictation All CT scans are performed using dose optimization technique as appropriate and may include automated exposure control or mA/KV adjustment according to patient size. FINDINGS: Multiple gallstones. Gallbladder wall appears borderline thickened. Biliary tree normal caliber. A renal calculus is not seen. An ureteral calculus is not noted. A bladder calculus is not present. Small low-density lesions within the spleen are nonspecific without IV contrast. The 24 millimeter mildly hyperdense mass is present within the lower pole right kidney The liver, spleen, pancreas and adrenals appear grossly normal There is no evidence of diverticulitis. The appendix appears normal 5 millimeter right middle lobe nodule Small umbilical hernia contains fat Mild anterior subluxation of L3 on L4. Minimal posterior subluxation L4 on L5. Lumbar spondylosis IMPRESSION: Negative for a genitourinary calculus 5 millimeter right middle lobe nodule. Per Fleischner guidelines if patient is high risk follow up CT chest in 1 year recommended Renal masses. Ultrasound recommended Cholelithiasis. Gallbladder wall appears borderline thickened ABUS: CLINICAL HISTORY: Abdominal pain. FINDINGS: Multiple gallstones. Gallbladder wall appears borderline thickened The biliary tree is normal caliber. IMPRESSION: Cholelithiasis. Borderline gallbladder wall thickening Surgery: Date of Procedure: 09/05/2018 Surgeon: Terell Eastman MD Preoperative Diagnoses: 1. Acute cholecystitis. 2. Symptomatic cholelithiasis. 3. Incarcerated umbilical hernia. Postoperative Diagnoses: 1. Acute cholecystitis. 2. Symptomatic cholelithiasis. 3. Incarcerated umbilical hernia. Procedures: 1. Laparoscopic cholecystectomy. 2. Open repair of incarcerated umbilical hernia. Anesthesia: General plus local. Findings: Acute cholecystitis with thickened gallbladder wall. The patient also had incarcerated omentum and umbilical hernia. Medical Problem List: Acute cholecystitis with symptomatic cholelithiasis along with incarcerated umbilical hernia status post laparoscopic cholecystectomy and open repair of incarcerated umbilical hernia Incidental finding of 5 mm right middle lobe nodule Incidental finding of 24 mm hyperdense mass in the lower right kidney Hypertension Hypothyroidism History of breast cancer Brief History of Present Illness: 77-year-old female presented emergency room with right upper quadrant abdominal pain. Patient with history of breast cancer, hypertension, hypothyroidism. Patient found to have acute cholecystitis. Patient was admitted for treatment. Hospital Course: Patient presented with right upper quadrant abdominal pain Patient found to have acute cholecystitis with symptomatic cholelithiasis. Patient was seen and evaluated by surgery. Umbilical hernia was noted surgical intervention was required. Patient had a laparoscopic cholecystectomy. Incarcerated umbilical hernia was present. This was followed with an open repair of incarcerated umbilical hernia. Patient did well post operatively. Patient tolerating her current diet. At discharge patient will continue with Cipro 500 mg twice daily and Flagyl 500 mg 3 times a day for 7 days. No heavy lifting, pushing or pulling recommended at this time. Patient will need to follow up surgery in 1 week to follow up her care. Incidental finding of 5 mm right middle lobe nodule noted. Recommendation to follow up with pulmonology as an outpatient to further address. Patient reports that this has been evaluated in the past. Recommend repeat CT scan in 3 -6 months to monitor resolution or stability. Incidental finding of 24 mm hyperdense mass in the right kidney also noted. Patient prefers to have renal ultrasound done as an outpatient. Will recommend that the patient follow up with her PCP to obtain renal ultrasound to further evaluate. Patient may require urology evaluation in the future to further evaluate. Patient with hypertension. Patient will continue with her medication- lisinopril hydrochlorothiazide 20/12.5 mg daily. Recommendation is to maintain blood pressures less 150/80. Further adjustment can be done by her PCP. Patient with hypothyroidism. Patient will continue with her medications- levothyroxine 50 mcg daily and [place] Thyroid 30 mg daily further adjustment can be done by endocrinology. Patient with history of breast cancer. Patient will continue with Aromasin 25 mg daily. Vital Signs/Physical Exam: Temp Pulse Resp BP Pulse Ox 98.0 F 82 18 162/78 H 99 09/06/18 08:00 09/06/18 10:15 09/06/18 08:00 09/06/18 10:15 09/06/18 08:00 General: Alert, In no apparent distress, Oriented x3, Cooperative HEENT: Atraumatic Neck: Supple Respiratory: Clear to auscultation bilaterally, Normal air movement Cardiovascular: Normal pulses, Regular rate/rhythm Gastrointestinal: Normal bowel sounds, Soft and benign, Non-distended, No tenderness, No masses, No rebound, No guarding Musculoskeletal: No erythema, No tenderness, No warmth Integumentary: No tenderness/swelling, No erythema, No warmth, No cyanosis Neurological: Normal speech, Normal strength at 5/5 x4 extr, Normal tone, Normal affect Laboratory Data at Discharge: WBC 19.6 K/uL (4.3-10.9) H D 09/05/18 05:40 Hgb 14.4 g/dL (12.0-15.0) 09/05/18 05:40 Hct 42.5 % (36.0-45.0) 09/05/18 05:40 Plt Count 226 K/uL (152-406) 09/05/18 05:40 Sodium 140 mmol/L (136-145) 09/06/18 06:58 Potassium 4.4 mmol/L (3.5-5.1) 09/06/18 06:58 BUN 16 mg/dL (7-18) 09/06/18 06:58 Creatinine 0.70 mg/dL (0.55-1.3) 09/06/18 06:58 Glucose 110 mg/dL (74-106) H 09/06/18 06:58 Magnesium 2.2 mg/dL (1.8-2.4) 09/06/18 06:58 Total Bilirubin 1.1 mg/dL (0.2-1.0) H 09/05/18 05:40 AST 22 U/L (15-37) 09/05/18 05:40 ALT 25 U/L (12-78) 09/05/18 05:40 Alkaline Phosphatase 68 U/L (45-117) 09/05/18 05:40 Lipase 145 U/L (73-393) 09/04/18 01:06 Home Medications: Brimonidine Tartrate/Timolol [Combigan 0.2%-0.5% Eye Drops] 1 drop EACH EYE BID 09/04/18 Exemestane [Aromasin] 25 mg PO DAILY 09/04/18 Levothyroxine [Synthroid*] 0.025 mcg PO DAILY 09/04/18 Lisinopril/Hydrochlorothiazide [Lisinopril-Hctz 20-12.5 mg Tab] 1 tab PO DAILY 09/04/18 Lovastatin 20 mg PO BEDTIME 09/04/18 Thyroid Tab [[place] Thyroid*] 30 mg PO DAILY 09/04/18 Ciprofloxacin HCl [Cipro 500 MG Tablet] 500 mg PO BID #14 tab 09/06/18 Docusate [Colace Cap*] 100 mg PO DAILY #30 cap 09/06/18 metroNIDAZOLE [Flagyl] 500 mg PO Q8H #21 tablet 09/06/18 New Medications: Ciprofloxacin HCl [Cipro 500 MG Tablet] 500 mg PO BID #14 tab Docusate [Colace Cap*] 100 mg PO DAILY #30 cap metroNIDAZOLE [Flagyl] 500 mg PO Q8H #21 tablet Patient Discharge Instructions: 1. Patient will need a follow up with her PCP in 1 week to follow up this hospitalization. 2. Patient presented with right upper quadrant abdominal pain Patient found to have acute cholecystitis with symptomatic cholelithiasis. Patient was seen and evaluated by surgery. Umbilical hernia was noted surgical intervention was required. Patient had a laparoscopic cholecystectomy. Incarcerated umbilical hernia was present. This was followed with an open repair of incarcerated umbilical hernia. Patient did well post operatively. Patient tolerating her current diet. At discharge patient will continue with Cipro 500 mg twice daily and Flagyl 500 mg 3 times a day for 7 days. No heavy lifting, pushing or pulling recommended at this time. Patient will need to follow up surgery in 1 week to follow up her care. 3. Incidental finding of 5 mm right middle lobe nodule noted. Recommendation to follow up with pulmonology as an outpatient to further address. Patient reports that this has been evaluated in the past. Recommend repeat CT scan in 3 -6 months to monitor resolution or stability. 4. Incidental finding of 24 mm hyperdense mass in the right kidney also noted. Patient prefers to have renal ultrasound done as an outpatient. Will recommend that the patient follow up with her PCP to obtain renal ultrasound to further evaluate. Patient may require urology evaluation in the future to further evaluate. 5. Patient with hypertension. Patient will continue with her medication-lisinopril hydrochlorothiazide 20/12.5 mg daily. Recommendation is to maintain blood pressures less 150/80. Further adjustment can be done by her PCP. 6. Patient with hypothyroidism. Patient will continue with her medications-levothyroxine 50 mcg daily and [place] Thyroid 30 mg daily further adjustment can be done by endocrinology. 7. Patient with history of breast cancer. Patient will continue with Aromasin 25 mg daily. Diet: GI soft diet Activity: No lifting more than 10 lbs Time spent managing pt's care (in minutes): 55
[2018-09-06 12:26] VITALS: BP 140/71
[2018-09-06] MEDS ORDERED: ATORVASTATIN 10 MG TAB PO SCH (21:00)
--- NOTE | 2018-09-06 21:00 | PN ---
Date of Progress Note: 09/06/2018 Diagnosis: 1.Symptomatic cholelithiasis. 2.Acute cholecystitis. History Of Present Illness: The patient was doing well. No nausea or shortness of breath. No chest pain. No fever. No nausea. No vomiting. No diarrhea and tolerating diet. Review of Systems: Ten points otherwise unremarkable. Physical Examination: Chest: Clear. Abdomen: Soft and depressible. Intact surgical site. Bowel sounds positive. Extremities: No calf tenderness. Plan: From a surgical standpoint, she is okay to be discharged home. She was explained the importan ce of no heavy lifting. Follow up in my office in 1 week. Call for appointment [phone]. The patien t will continue with p.o. antibiotics and Tylenol No. 3 for pain. The patient advised not to do heav y lifting. She may take a shower tomorrow with dressings off, then apply triple antibiotic and Band- Aid if possible. MARY ANNE/SVEN Voice ID: [id number] Report ID: [id number]
--- NOTE | 2018-09-07 00:09 | CON ---
Date of Consultation: 09/04/[address] Bonilla on 09/04/2018. I saw the patient on 09/04/2018. Reason For Consultation: Cardiac clearance. History Of Present Illness: Ms. Nj is a 77-year-old woman who has a history of hypertension, dy slipidemia, hypothyroidism, history of breast cancer. Came in with cholelithiasis and there is a angi n for surgery on her. She denied any cardiac symptoms. Has no cardiac history. Has a family histor y of hypertension. She denied PND, orthopnea, pedal edema, palpitation, or syncope. EKG showed old anterior CA, probably secondary to her body habitus. EKG in 2015 was identical. An echocardiogram t hen was normal. Past Medical History: Otherwise stated earlier. Allergies: TO ADHESIVES AND NITROFURANTOIN. Family History: Positive for hypertension. Review of Systems: Negative. Social History: Negative. Medications: Include Synthroid, lisinopril with hydrochlorothiazide, Mevacor. Physical Examination: Vital Signs: Her initial pressure was 191/105, her pressure now is 150/84; sinus rhythm, afebrile. General: No acute distress. HEENT: Negative. Neck: Supple without any bruit, lymphadenopathy, JVD, or thyromegaly. Chest: Clear to auscultation and percussion. Cardiac: Exam revealed a regular rhythm and rate without any murmurs, gallops, or rubs. Abdomen: Benign. Extremities: Revealed no clubbing, cyanosis, or edema. Diagnostic Data: As stated earlier. Impression And Plan: The patient with cholelithiasis, abnormal EKG, normal recent echo in 2014. No cardiac symptoms. Normal cardiac examination. I think she is at low risk for perioperative mortalit y. Her blood pressure has improved since admission. Her blood pressure may have been high secondary to pain and discomfort. We will continue to monitor that. Her other problems include hypothyroidis m on Synthroid, dyslipidemia on Mevacor and she had a history of breast cancer that has resolved. We will continue to follow her along. RADHA/SVEN Voice ID: [id number] Report ID: [id number]
[2018-09-07] MEDS ORDERED: THYROID 30 MG TAB PO SCH (06:30)
[2018-09-07] MEDS ORDERED: LEVOTHYROXINE SOD 0.05 MG TABLET PO SCH (06:30)
== END 2018-09-06 16:17 | disposition home or self-care (01) ==
LOC: ER 00:06 → ERHOLD 03:55 → 2ND 07:43
PROVIDERS: ADMIT Internal Medicine; ATTEND Internal Medicine
PROC: 0WQF0ZZ Repair Abdominal Wall, Open Approach (ICD-10-PCS; 2018-09-05)
PROC: 0FT44ZZ Resection of Gallbladder, Percutaneous Endoscopic Approach (ICD-10-PCS; principal; 2018-09-05 12:45)
DX: K80.00 Calculus of gallbladder with acute cholecystitis without obstruction (principal); K42.0 Umbilical hernia with obstruction, without gangrene; I10 Essential (primary) hypertension; E03.9 Hypothyroidism, unspecified; Z96.649 Presence of unspecified artificial hip joint; Z85.3 Personal history of malignant neoplasm of breast; Z88.2 Allergy status to sulfonamides
CPT/HCPCS: 36415 ×3; 47562; 49587; 74176; 76377; 76705; 80048 ×2; 80053; 80076; 83690; 83735; 85025 ×2; 87088; 88302; 88304; 93005 ×2; 96361; 96365; 96375; 99285; G0378 ×2; J0360 ×2; J0744 ×5; J1100; J2175; J2250; J2405 ×4; J2543; J2704; J2710; J3010 ×2; J7030 ×5; 81003; 81015; 87086

== ENCOUNTER 2018-09-07 16:47 | Emergency (ER) | payer OTHER ==
--- OUTSIDE RECORDS SUMMARY | 2018-09-07 16:50 | XMS REPORT | Clinical Summary ---
:[address] [facility] [employer] Address [address] [place] [address] Care Team Providers Name Role Phone Corazon [...] Not on file Implants Implanted Type Area Manager Center Device Shelf Model / Identifier Expiration Serial / Lot Date [facility] [place] [id number] - [id number] Ophthalmology Right: PHARMACIA & [id number] / Implanted: Qty: 1 on 07/12/2016 by Brad Duarte MD Eye [employer] [id number] / Halo Sterile Cornea Right: [employer] 11/18/2016 / Implanted: Qty: 1 on 07/12/2016 by Brad Durate MD Eye [employer] [id number] / Results Not on fileafter 09/06/2017 Insurance Payer Benefit Plan / Group Subscriber ID Type Phone Address MEDICARE MEDICARE A B xxxxxxxxxxx Medicare MCR GENERIC MEDICARE xxxxxxxxxx Med[employer] SUPPLEMENT/INDIVIDUAL SUPPLEMENT
--- NOTE | 2018-09-07 18:13 | EDPHYS ---
Physician Documentation [facility] Name: Triny Nj Age: 77 yrs Sex: Female : 1940 Arrival Date: 09/07/2018 Time: 16:48 Bed 30 Private MD: Larry Biswas ED Physician Leodan Hernández HPI: 09/07 18:05 This 77 yrs old Female presents to ER via Ambulatory with complaints of pm1 Allergic Reaction. 18:05 The patient presents with Swelling to left hand. Onset: The symptoms/episode pm1 began/occurred today. Associated signs and symptoms: Pertinent negatives: abdominal pain, chest pain, fever, headache, nausea, shortness of breath, vomiting. Possible causes: PO antibiotics, cipro and/or flagyl. At home the patient or guardian has treated the symptoms with nothing. Severity of symptoms: in the emergency department the symptoms are unchanged. The patient has experienced similar episodes in the past, hand swelling similar to prior allergic reactions from other known medications that she is allergic to. The patient has been recently been admitted at [facility], was discharged yesterday, cholecystectomy . Historical: - Allergies: 17:37 Adhesives; sg 17:37 Bactrim; sg 17:37 MAGNESIUM SALT; sg 17:37 MSG; sg 17:37 Nitrofurantoin Macrocrystal; sg 17:37 Sulfa (Sulfonamide Antibiotics); sg 17:37 Vancomycin; sg - PMHx: 17:37 Cancer, Breast; Hyperlipidemia; Hypertension; hyperthyroidism; sg - PSHx: 17:37 Mastectomy, Left; Mastectomy, Right; finger; drain in back of right eye; right hip; sg - Immunization history:: Adult Immunizations up to date. - Social history:: Smoking status: Patient/guardian denies using tobacco. - Ebola Screening: : Patient negative for fever greater than or equal to 101.5 degrees Fahrenheit, and additional compatible Ebola Virus Disease symptoms Patient denies exposure to infectious person Patient denies travel to an Ebola-affected area in the 21 days before illness onset No symptoms or risks identified at this time. ROS: 18:05 Constitutional: Negative for fever, chills, and weight loss, Eyes: Negative for injury, pm1 pain, redness, and discharge, ENT: Negative for injury, pain, and discharge, Neck: Negative for injury, pain, and swelling, Cardiovascular: Negative for chest pain, palpitations, and edema, Respiratory: Negative for shortness of breath, cough, wheezing, and pleuritic chest pain, Abdomen/GI: Negative for abdominal pain, nausea, vomiting, diarrhea, and constipation, Back: Negative for injury and pain, : Negative for injury, bleeding, discharge, and swelling, MS/Extremity: Negative for injury and deformity. 18:05 Neuro: Negative for headache, weakness, numbness, tingling, and seizure. 18:05 Skin: Positive for rash, of the left hand. Exam: 18:05 Constitutional: This is a well developed, well nourished patient who is awake, alert, pm1 and in no acute distress. Head/Face: Normocephalic, atraumatic. Eyes: Pupils equal round and reactive to light, extra-ocular motions intact. Lids and lashes normal. Conjunctiva and sclera are non-icteric and not injected. Cornea within normal limits. Periorbital areas with no swelling, redness, or edema. ENT: Nares patent. No nasal discharge, no septal abnormalities noted. Tympanic membranes are normal and external auditory canals are clear. Oropharynx with no redness, swelling, or masses, exudates, or evidence of obstruction, uvula midline. Mucous membranes moist. Neck: Trachea midline, no thyromegaly or masses palpated, and no cervical lymphadenopathy. Supple, full range of motion without nuchal rigidity, or vertebral point tenderness. No Meningismus. Chest/axilla: Normal chest wall appearance and motion. Nontender with no deformity. No lesions are appreciated. Cardiovascular: Regular rate and rhythm with a normal S1 and S2. No gallops, murmurs, or rubs. Normal PMI, no JVD. No pulse deficits. Respiratory: Lungs have equal breath sounds bilaterally, clear to auscultation and percussion. No rales, rhonchi or wheezes noted. No increased work of breathing, no retractions or nasal flaring. Abdomen/GI: Soft, non-tender, with normal bowel sounds. No distension or tympany. No guarding or rebound. No evidence of tenderness throughout. Surgical wounds without signs of infection or drainage Back: No spinal tenderness. No costovertebral tenderness. Full range of motion. 18:05 MS/ Extremity: Pulses equal, no cyanosis. Neurovascular intact. Full, normal range of motion. 18:05 Skin: Appearance: normal except for affected area, swelling, noted on the dorsum of left hand, that are mild. 18:05 Neuro: Orientation: is normal, Motor: moves all fours, Gait: is steady, at a normal pace, without difficulty. Vital Signs: 17:35 BP 185 / 99; Pulse 93; Resp 17; Temp 97.7; Pulse Ox 98% on R/A; Pain 4/10; sg MDM: 17:55 Patient medically screened. pm1 18:06 Data reviewed: vital signs. Data interpreted: Pulse oximetry: on room air is 98 %. pm1 Interpretation: normal. Counseling: I had a detailed discussion with the patient and/or guardian regarding: the historical points, exam findings, and any diagnostic results supporting the discharge/admit diagnosis, the need for outpatient follow up, to return to the emergency department if symptoms worsen or persist or if there are any questions or concerns that arise at home. 18:06 Physician consultation: Terell Eastman MD was called at 18:00, was contacted at 18:00, pm1 regarding patient's condition, Stop cipro and flagyl, Augmentin 875 mg PO BID. Keep her follow up appointment . Administered Medications: 18:18 Drug: Benadryl 25 mg Route: IM; Site: Other; tl3 18:19 Follow up: Response: Medication administered at discharge. tl3 18:18 Drug: Pepcid 20 mg Route: PO; tl3 18:19 Follow up: Response: Medication administered at discharge. tl3 Disposition: 09/08 09:30 Co-signature as Attending Physician, Leodan Hernández MD. Disposition: 09/07/18 18:11 Discharged to Home. Impression: Allergy, unspecified - allergic reaction to antibiotcs to left upper limb, hand. - Condition is Stable. - Discharge Instructions: Hives. - Prescriptions for Augmentin 875- 125 mg Oral Tablet - take 1 tablet by ORAL route every 12 hours for 10 days; 20 tablet. Benadryl 25 mg Oral Capsule - take 1 capsule by ORAL route every 6 hours As needed; 30 tablet. Pepcid 20 mg Oral Tablet - take 1 tablet by ORAL route every 12 hours for 5 days; 10 tablet. - Medication Reconciliation Form, Thank You Letter, Antibiotic Education, Prescription Opioid Use form. - Follow up: Emergency Department; When: As needed; Reason: Worsening of condition. Follow up: Terell Eastman MD; When: scheduled follow up appointment; Reason: Recheck today's complaints, Continuance of care, Re-evaluation by your physician. - Problem is new. - Symptoms have improved. Signatures: Edmar Judge, RN RN sg Tanya Mathews RN RN iw Sheldon Del Real, DECORATING INSTRUCTOR DECORATING INSTRUCTOR pm1 Leodan Hernández MD MD Natalya Tracy RN RN tl3 Corrections: (The following items were deleted from the chart) 09/07 18:24 18:11 09/07/2018 18:11 Discharged to Home. Impression: Allergy, unspecified - allergic iw reaction to antibiotcs to left upper limb, hand. Condition is Stable. Forms are Medication Reconciliation Form, Thank You Letter, Antibiotic Education, Prescription Opioid Use. Follow up: Emergency Department; When: As needed; Reason: Worsening of condition. Follow up: Terell Eastman; When: scheduled follow up appointment; Reason: Recheck today's complaints, Continuance of care, Re-evaluation by your physician. Problem is new. Symptoms have improved. pm1
--- NOTE | 2018-09-07 18:13 | ER ---
Nurse's Notes [facility] Name: Triny Nj Age: 77 yrs Sex: Female : 1940 Arrival Date: 09/07/2018 Time: 16:48 Bed 30 Private MD: Larry Biswas Diagnosis: Allergy, unspecified-allergic reaction to antibiotcs to left upper limb, hand Presentation: 09/07 17:31 Presenting complaint: Patient states: I just had surgery with to remove my sg Gallbladder and they had a hernia that had involvement of the intestines. Last night had swelling to her Left hand with redness and little blisters, currently on Cipro PO and Flagyl PO, reports having taken the Cipro in the past with no problems but believes the flagyl may be the problem. Transition of care: patient was not received from another setting of care. Onset: The symptoms/episode began/occurred gradually, 1 day(s) ago. Anaphylaxis evaluation, no signs or symptoms of anaphylaxis were noted. Onset of symptoms was September 07, 2018. Risk Assessment: Do you want to hurt yourself or someone else? Patient reports no desire to harm self or others. Initial Sepsis Screen: Does the patient meet any 2 criteria? No. Patient's initial sepsis screen is negative. Does the patient have a suspected source of infection? No. Patient's initial sepsis screen is negative. Care prior to arrival: None. 17:31 Method Of Arrival: Ambulatory sg 17:31 Acuity: YUDITH 3 sg Historical: - Allergies: 17:37 Adhesives; sg 17:37 Bactrim; sg 17:37 MAGNESIUM SALT; sg 17:37 MSG; sg 17:37 Nitrofurantoin Macrocrystal; sg 17:37 Sulfa (Sulfonamide Antibiotics); sg 17:37 Vancomycin; sg - PMHx: 17:37 Cancer, Breast; Hyperlipidemia; Hypertension; hyperthyroidism; sg - PSHx: 17:37 Mastectomy, Left; Mastectomy, Right; finger; drain in back of right eye; right hip; sg - Immunization history:: Adult Immunizations up to date. - Social history:: Smoking status: Patient/guardian denies using tobacco. - Ebola Screening: : Patient negative for fever greater than or equal to 101.5 degrees Fahrenheit, and additional compatible Ebola Virus Disease symptoms Patient denies exposure to infectious person Patient denies travel to an Ebola-affected area in the 21 days before illness onset No symptoms or risks identified at this time. Screenin:42 Abuse screen: Denies threats or abuse. Denies injuries from another. Nutritional sg screening: No deficits noted. Tuberculosis screening: No symptoms or risk factors identified. Never had TB. Fall Risk None identified. Assessment: 17:38 General: Appears in no apparent distress. comfortable, well groomed, well developed, sg well nourished, Behavior is calm, cooperative, appropriate for age. Pain: Denies pain. Neuro: No deficits noted. Cardiovascular: Patient's skin is warm and dry. Chest pain is denied. Respiratory: Airway is patent Respiratory effort is even, unlabored, Respiratory pattern is regular, symmetrical, Breath sounds are clear. GI: Abdomen is round distended, surgical incisions noted to abd, no drainage noted at this time, redness noted, pt reports that the redness is from irritation of the adhesive dressings Reports flatulence, tolerance of fluids, tolerance of food. : No signs and/or symptoms were reported regarding the genitourinary system. EENT: No signs and/or symptoms were reported regarding the EENT system. Derm: Skin is intact, Skin is pink, warm \T\ dry. Skin temperature is warm Rash noted that is on left hand. Musculoskeletal: No signs and/or symptoms reported regarding the musculoskeletal system. Vital Signs: 17:35 BP 185 / 99; Pulse 93; Resp 17; Temp 97.7; Pulse Ox 98% on R/A; Pain 4/10; sg ED Course: 16:48 Patient arrived in ED. as 16:49 Larry Biswas MD is Private Physician. as 17:35 Triage completed. sg 17:35 Arm band placed on. sg 17:37 Sheldon Del Real NP is PHCP. pm1 17:37 Leodan Hernández MD is Attending Physician. pm1 17:38 Edmar Judge, MELIA is Primary Nurse. sg 17:53 Nurse Practitioner and/or Physician Radiology Physician to see patient. Sheldon at bedside. tl3 18:09 Terell Eastman MD is Referral Physician. pm1 Administered Medications: 18:18 Drug: Benadryl 25 mg Route: IM; Site: Other; tl3 18:19 Follow up: Response: Medication administered at discharge. tl3 18:18 Drug: Pepcid 20 mg Route: PO; tl3 18:19 Follow up: Response: Medication administered at discharge. tl3 Outcome: 18:11 Discharge ordered by . pm1 18:24 Patient left the ED. iw Signatures: Edmar Judge, RN RN Lien Robert Irene, RN RN iw Sheldon Del Real, ALUMINIZER ALUMINIZER pm1 Natalya Tracy RN RN tl3
[2018-09-07] MEDS ORDERED: DIPHENHYDRAMINE 25 MG TAB/CAP ONE (18:24)
[2018-09-07] MEDS ORDERED: FAMOTIDINE 20 MG TAB ONE (18:25)
[2018-09-07 18:29] VITALS: BP 185/99; TEMP 97.7; O2SAT 98
== END 2018-09-07 18:24 | disposition home or self-care (01) ==
LOC: ER 16:47
DX: T78.40XA Allergy, unspecified, initial encounter (principal); T36.95XA Adverse effect of unspecified systemic antibiotic, initial encounter; Y92.9 Unspecified place or not applicable; Z88.1 Allergy status to other antibiotic agents; Z88.2 Allergy status to sulfonamides; Z88.3 Allergy status to other anti-infective agents
CPT/HCPCS: 96372; 99282

== ENCOUNTER 2018-10-29 21:08 | Emergency (ER) | payer OTHER ==
--- OUTSIDE RECORDS SUMMARY | 2018-10-29 21:10 | XMS REPORT | Clinical Summary ---
:1940 Author Organization [facility] [employer] Address [address] [place] [address] Care Team Providers Name Role Phone Corazon [...] Not on file Implants Implanted Type Area Matrix Inspector Device Shelf Model / Identifier Expiration Serial / Lot Date [facility] [place] [id number] - [id number] Ophthalmology Right: PHARMACIA & [id number] / Implanted: Qty: 1 on 07/12/2016 by Brad Duarte MD Eye [employer] [id number] / Halo Sterile Cornea Right: [employer] 11/18/2016 / Implanted: Qty: 1 on 07/12/2016 by Brad Duarte MD Eye [employer] [id number] / Results Not on fileafter 10/28/2017 Insurance Payer Benefit Plan / Group Subscriber ID Type Phone Address MEDICARE MEDICARE A B xxxxxxxxxxx Medicare MCR GENERIC MEDICARE xxxxxxxxxx Medigap SUPPLEMENT/INDIVIDUAL SUPPLEMENT
[2018-10-29 21:52] LABS: Urine Blood 3+ (NEG); Urine Glucose NEGATIVE (NEG); Urine Protein 1+ (NEG); Urine Specific Gravity 1.015 (1.005-1.030)
[2018-10-29 21:56] LABS: Urine Bacteria <20 /HPF (<20); Urine Culture Reflex Order REFLEXED; Urine RBC 20-50 /HPF (NONE SEEN)
--- NOTE | 2018-10-29 22:28 | ER ---
Nurse's Notes [facility] Name: Triny Nj Age: 77 yrs Sex: Female : 1940 Arrival Date: 10/29/2018 Time: 21:11 Bed 14 Private MD: Larry Biswas Diagnosis: Dysuria;Urinary tract infection, site not specified Presentation: 10/29 21:25 Presenting complaint: Patient states: she started having blood in her urine with bb frequency and burning about 3 hours ago pt has had symptoms in the past and had a UTI with a "blood infection". Transition of care: patient was not received from another setting of care. Onset of symptoms was October 29, 2018. Risk Assessment: Do you want to hurt yourself or someone else? Patient reports no desire to harm self or others. Initial Sepsis Screen: Does the patient meet any 2 criteria? No. Patient's initial sepsis screen is negative. Does the patient have a suspected source of infection? No. Patient's initial sepsis screen is negative. Care prior to arrival: None. 21:25 Method Of Arrival: Ambulatory bb 21:25 Acuity: YUDITH 3 bb Triage Assessment: 21:34 General: Appears in no apparent distress. comfortable, Behavior is calm, cooperative, cc3 appropriate for age. Pain: Complains of pain in suprapubic area. Historical: - Allergies: 21:29 Adhesives; bb 21:29 Bactrim; bb 21:29 MAGNESIUM SALT; bb 21:29 MSG; bb 21:29 Nitrofurantoin Macrocrystal; bb 21:29 Sulfa (Sulfonamide Antibiotics); bb 21:29 Vancomycin; bb - Home Meds: 21:29 [place] Thyroid 30 mg Oral tab [Active]; Combigan [Active]; exemestane 25 mg Oral tab 1 bb tab once daily [Active]; levothyroxine oral .025 mcg [Active]; lovastatin 20 mg Oral tab 1 tab once daily [Active]; lisinopril-hydrochlorothiazide 20-12.5 mg oral tab 1 tab once daily [Active]; - PMHx: 21:29 Cancer, Breast; Hyperlipidemia; Hypertension; Hypothyroidism; bb - PSHx: 21:29 Mastectomy, Left; Mastectomy, Right; finger; drain in back of right eye; right hip; bb - Immunization history:: Adult Immunizations up to date, Flu vaccine is up to date. - Social history:: Smoking status: Patient/guardian denies using tobacco. - Ebola Screening: : No symptoms or risks identified at this time. Screenin:34 Abuse screen: Denies threats or abuse. Denies injuries from another. Nutritional cc3 screening: No deficits noted. Tuberculosis screening: No symptoms or risk factors identified. Fall Risk Ambulatory Aid- None/Bed Rest/Nurse Assist (0 pts). Gait- Normal/Bed Rest/Wheelchair (0 pts) Mental Status- Oriented to own ability (0 pts). Assessment: 22:55 Reassessment: Patient appears in no apparent distress at this time. Patient and/or cc3 family updated on plan of care and expected duration. Pain level reassessed. Patient is alert, oriented x 3, equal unlabored respirations, skin warm/dry/pink. Patient left ER vitally stable and ambulatory. Vital Signs: 21:29 BP 166 / 106; Pulse 80; Resp 20 S; Temp 98.5(O); Pulse Ox 98% on R/A; Weight 86.18 kg bb (R); Height 5 ft. 7 in. (170.18 cm) (R); Pain 7/10; 22:15 BP 159 / 97; Pulse 82; Resp 19 S; Pulse Ox 98% on R/A; cc3 21:29 Body Mass Index 29.76 (86.18 kg, 170.18 cm) bb ED Course: 21:11 Patient arrived in ED. es 21:12 Larry Biswas MD is Private Physician. es 21:27 Triage completed. bb 21:29 Arm band placed on Patient placed in an exam room, on a stretcher, on pulse oximetry. bb 21:34 Lizz Stratton is Primary Nurse. cc3 21:34 Patient has correct armband on for positive identification. Bed in low position. Call cc3 light in reach. Side rails up X 1. Pulse ox on. NIBP on. 22:06 Isaiah De Luna MD is Attending Physician. arias 22:27 Larry Biswas MD is Referral Physician. [facility] 22:55 No provider procedures requiring assistance completed. Patient did not have IV access cc3 during this emergency room visit. Administered Medications: 22:40 Drug: LevOfloxacin 500 mg Route: PO; cc3 22:55 Follow up: Response: No adverse reaction cc3 22:40 Drug: Pyridium 200 mg Route: PO; cc3 22:55 Follow up: Response: No adverse reaction cc3 22:42 Drug: Rocephin (cefTRIAXone) 1 grams Route: IM; Site: left gluteus; cc3 22:55 Follow up: Response: No adverse reaction cc3 Outcome: 22:28 Discharge ordered by . arias 22:55 Patient left the ED. cc3 22:55 Discharged to home ambulatory. cc3 22:55 Condition: stable 22:55 Discharge instructions given to patient, Instructed on discharge instructions, follow up and referral plans. medication usage, Demonstrated understanding of instructions, follow-up care, medications, Prescriptions given X 2. Signatures: Isaiah De Luna MD MD cha Salyer, Edna es Ballard, Brenda, MELIA RN Lizz Loza cc3
--- NOTE | 2018-10-29 22:28 | EDPHYS ---
Physician Documentation [facility] Name: Triny Nj Age: 77 yrs Sex: Female : 1940 Arrival Date: 10/29/2018 Time: 21:11 Bed 14 Private MD: Larry Biswas ED Physician Isaiah De Luna HPI: 10/29 22:25 This 77 yrs old Female presents to ER via Ambulatory with complaints of arias Urinary Frequency, Pain With Urination, blood in urine. 22:25 The patient presents with urinary symptoms, dysuria, frequency, urgency. Onset: The arias symptoms/episode began/occurred 1 day(s) ago. Modifying factors: The symptoms are alleviated by nothing, the symptoms are aggravated by nothing. Associated signs and symptoms: The patient has no apparent associated signs or symptoms. Severity of symptoms: At their worst the symptoms were mild, in the emergency department the symptoms are unchanged. The patient is not sexually active. The patient has experienced similar episodes in the past, several times. Historical: - Allergies: 21:29 Adhesives; bb 21:29 Bactrim; bb 21:29 MAGNESIUM SALT; bb 21:29 MSG; bb 21:29 Nitrofurantoin Macrocrystal; bb 21:29 Sulfa (Sulfonamide Antibiotics); bb 21:29 Vancomycin; bb - Home Meds: 21:29 [place] Thyroid 30 mg Oral tab [Active]; Combigan [Active]; exemestane 25 mg Oral tab 1 bb tab once daily [Active]; levothyroxine oral .025 mcg [Active]; lovastatin 20 mg Oral tab 1 tab once daily [Active]; lisinopril-hydrochlorothiazide 20-12.5 mg oral tab 1 tab once daily [Active]; - PMHx: 21:29 Cancer, Breast; Hyperlipidemia; Hypertension; Hypothyroidism; bb - PSHx: 21:29 Mastectomy, Left; Mastectomy, Right; finger; drain in back of right eye; right hip; bb - Immunization history:: Adult Immunizations up to date, Flu vaccine is up to date. - Social history:: Smoking status: Patient/guardian denies using tobacco. - Ebola Screening: : No symptoms or risks identified at this time. ROS: 22:25 Constitutional: Negative for fever, chills, and weight loss, Eyes: Negative for injury, arias pain, redness, and discharge, ENT: Negative for injury, pain, and discharge, Neck: Negative for injury, pain, and swelling, Cardiovascular: Negative for chest pain, palpitations, and edema, Respiratory: Negative for shortness of breath, cough, wheezing, and pleuritic chest pain, Back: Negative for injury and pain, MS/Extremity: Negative for injury and deformity, Skin: Negative for injury, rash, and discoloration, Neuro: Negative for headache, weakness, numbness, tingling, and seizure, Psych: Negative for depression, anxiety, suicide ideation, homicidal ideation, and hallucinations, Allergy/Immunology: Negative for hives, rash, and allergies, Endocrine: Negative for neck swelling, polydipsia, polyuria, polyphagia, and marked weight changes, Hematologic/Lymphatic: Negative for swollen nodes, abnormal bleeding, and unusual bruising. 22:25 Abdomen/GI: Positive for abdominal pain, of the suprapubic area. 22:25 : Positive for small amounts, burning with urination, difficulty urinating. Exam: 22:25 Constitutional: This is a well developed, well nourished patient who is awake, alert, arias and in no acute distress. Head/Face: Normocephalic, atraumatic. Eyes: Pupils equal round and reactive to light, extra-ocular motions intact. Lids and lashes normal. Conjunctiva and sclera are non-icteric and not injected. Cornea within normal limits. Periorbital areas with no swelling, redness, or edema. ENT: Nares patent. No nasal discharge, no septal abnormalities noted. Tympanic membranes are normal and external auditory canals are clear. Oropharynx with no redness, swelling, or masses, exudates, or evidence of obstruction, uvula midline. Mucous membranes moist. Neck: Trachea midline, no thyromegaly or masses palpated, and no cervical lymphadenopathy. Supple, full range of motion without nuchal rigidity, or vertebral point tenderness. No Meningismus. Chest/axilla: Normal chest wall appearance and motion. Nontender with no deformity. No lesions are appreciated. Cardiovascular: Regular rate and rhythm with a normal S1 and S2. No gallops, murmurs, or rubs. Normal PMI, no JVD. No pulse deficits. Respiratory: Lungs have equal breath sounds bilaterally, clear to auscultation and percussion. No rales, rhonchi or wheezes noted. No increased work of breathing, no retractions or nasal flaring. Back: No spinal tenderness. No costovertebral tenderness. Full range of motion. Female : Normal external genitalia. Skin: Warm, dry with normal turgor. Normal color with no rashes, no lesions, and no evidence of cellulitis. MS/ Extremity: Pulses equal, no cyanosis. Neurovascular intact. Full, normal range of motion. Neuro: Awake and alert, GCS 15, oriented to person, place, time, and situation. Cranial nerves II-XII grossly intact. Motor strength 5/5 in all extremities. Sensory grossly intact. Cerebellar exam normal. Normal gait. Psych: Awake, alert, with orientation to person, place and time. Behavior, mood, and affect are within normal limits. 22:25 Abdomen/GI: Inspection: abdomen appears normal, Bowel sounds: normal, Palpation: mild abdominal tenderness, in the suprapubic area, Liver: no appreciated palpable abnormalities, Hernia: not appreciated. Vital Signs: 21:29 BP 166 / 106; Pulse 80; Resp 20 S; Temp 98.5(O); Pulse Ox 98% on R/A; Weight 86.18 kg bb (R); Height 5 ft. 7 in. (170.18 cm) (R); Pain 7/10; 22:15 BP 159 / 97; Pulse 82; Resp 19 S; Pulse Ox 98% on R/A; cc3 21:29 Body Mass Index 29.76 (86.18 kg, 170.18 cm) MDM: 22:06 Patient medically screened. [facility] 22:25 Data reviewed: vital signs, nurses notes, lab test result(s), urinalysis. [facility] 10/29 21:42 Order name: Urine Dipstick--Ancillary (enter results); Complete Time: 22:23 wv 10/29 21:42 Order name: Urine Microscopic Only; Complete Time: 22:23 wv 10/29 21:58 Order name: Urine Culture EDMS Administered Medications: 22:40 Drug: LevOfloxacin 500 mg Route: PO; cc3 22:55 Follow up: Response: No adverse reaction cc3 22:40 Drug: Pyridium 200 mg Route: PO; cc3 22:55 Follow up: Response: No adverse reaction [facility] 22:42 Drug: Rocephin (cefTRIAXone) 1 grams Route: IM; Site: left gluteus; cc3 22:55 Follow up: Response: No adverse reaction cc3 Disposition: 10/29/18 22:28 Discharged to Home. Impression: Dysuria, Urinary tract infection, site not specified. - Condition is Stable. - Discharge Instructions: Dysuria, Urinary Tract Infection, Adult, Urinary Tract Infection, Adult, [id number]. - Prescriptions for Levaquin 250 mg Oral Tablet - take 1 tablet by ORAL route once daily for 7 days; 7 tablet. Pyridium 200 mg Oral Tablet - take 1 tablet by ORAL route every 8 hours for 3 days; 9 tablet. - Medication Reconciliation Form, Thank You Letter, Antibiotic Education, Prescription Opioid Use form. - Follow up: Larry Biswas MD; When: 2 - 3 days; Reason: Recheck today's complaints, Continuance of care, Re-evaluation by your physician. - Problem is new. - Symptoms have improved. Signatures: Dispatcher [employer] [facility] Isaiah De Luna MD MD cha Ballard, Brenda, MELIA RN Lizz Loza cc3 Corrections: (The following items were deleted from the chart) 22:55 22:28 10/29/2018 22:28 Discharged to Home. Impression: Dysuria; Urinary tract cc3 infection, site not specified. Condition is Stable. Forms are Medication Reconciliation Form, Thank You Letter, Antibiotic Education, Prescription Opioid Use. Follow up: Larry Biswas; When: 2 - 3 days; Reason: Recheck today's complaints, Continuance of care, Re-evaluation by your physician. Problem is new. Symptoms have improved. arias
[2018-10-29] MEDS ORDERED: levoFLOXacin 500 MG TAB ONE (22:45)
[2018-10-29] MEDS ORDERED: PHENAZOPYRIDINE 100MG TAB PO ONE (22:45)
[2018-10-29] MEDS ORDERED: CEFTRIAXONE 1000 MG/VIAL ONE (22:45)
[2018-10-29] MEDS ORDERED: WATER FOR INJ,STERILE 10 ML ONE (22:46)
[2018-10-29 23:04] VITALS: BP 166/106; TEMP 98.5; O2SAT 98
== END 2018-10-29 22:55 | disposition home or self-care (01) ==
LOC: ER 21:08
DX: N39.0 Urinary tract infection, site not specified (principal)
CPT/HCPCS: 81003; 81015; 87077; 87086; 87088; 87186; 96372; 99283

== ENCOUNTER 2022-10-22 18:58 | Emergency (ER) | payer OTHER ==
--- NOTE | 2022-10-22 19:25 | ER ---
Nurse's Notes [facility] Name: Triny Nj Age: 81 yrs Sex: Female : 1940 Arrival Date: 10/22/2022 Time: 19:02 Bed 18 Private MD: Jeffry Bonilla Diagnosis: UTI/ Urinary tract infection, site not specified Presentation: 10/22 19:12 Chief complaint: Patient states: C/o groin pain and urinary frequency, states pain is ll3 4/10. Coronavirus screen: Vaccine status: Patient reports receiving the 2nd dose of the covid vaccine. At this time, the client does not indicate any symptoms associated with coronavirus-19. Ebola Screen: No symptoms or risks identified at this time. Initial Sepsis Screen: Does the patient meet any 2 criteria? HR > 90 bpm. No. Patient's initial sepsis screen is negative. Does the patient have a suspected source of infection? No. Patient's initial sepsis screen is negative. Risk Assessment: Do you want to hurt yourself or someone else? Patient reports no desire to harm self or others. Onset of symptoms was October 22, 2022. Care prior to arrival: Medication(s) given: Azo at 6 PM. 19:12 Method Of Arrival: Ambulatory ll3 19:12 Acuity: YUDITH 3 ll3 Historical: - Allergies: 19:14 Adhesives; ll3 19:14 Bactrim; ll3 19:14 MAGNESIUM SALT; ll3 19:14 MSG; ll3 19:14 Nitrofurantoin Macrocrystal; ll3 19:14 Sulfa (Sulfonamide Antibiotics); ll3 19:14 Vancomycin; ll3 - PMHx: 19:14 Cancer, Breast; Hyperlipidemia; Hypertension; hyperthyroidism; Hypothyroidism; ll3 - PSHx: 19:14 Cholecystectomy; ll3 - Immunization history:: Client reports receiving the 2nd dose of the Covid vaccine. - Social history:: Smoking status: Patient denies any tobacco usage or history of. Screenin:05 [facility] ED Fall Risk Assessment (Adult) History of falling in the last 3 months, ha1 including since admission No falls in past 3 months (0 pts) Confusion or Disorientation No (0 pts) Intoxicated or Sedated No (0 pts) Impaired Gait No (0 pts) Mobility Assist Device Used No (0 pt) Altered Elimination No (0 pt) Score/Fall Risk Level 0 - 2 = Low Risk Oriented to surroundings, Maintained a safe environment, Educated pt \T\ family on fall prevention, incl call for assistance when getting out of bed, Assessed \T\ reinforced patient's understanding of fall precautions. 19:50 Abuse screen: Denies threats or abuse. Denies injuries from another. Nutritional ha1 screening: No deficits noted. Tuberculosis screening: No symptoms or risk factors identified. Assessment: 19:03 General: Appears comfortable, Behavior is calm, cooperative. Pain: Complains of pain in ha1 pain with urination and lower abdomen Pain does not radiate. Pain at worst was 8 out of 10 on a pain scale. Quality of pain is described as Alleviated by medications. Neuro: Level of Consciousness is awake, alert, obeys commands, Oriented to person, place, time, situation. Cardiovascular: Patient's skin is warm and dry. Respiratory: Airway is patent Respiratory effort is even, unlabored, Respiratory pattern is regular, symmetrical. GI:. : Reports burning with urination, urinary frequency. Musculoskeletal: Circulation, motion, and sensation intact. Range of motion: intact in all extremities. 19:47 Reassessment: Patient and/or family updated on plan of care and expected duration. Pain ha1 level reassessed. Patient is alert, oriented x 3, equal unlabored respirations, skin warm/dry/pink. monitoring for adverse effect. Vital Signs: 19:12 BP 158 / 108; Pulse 93; Resp 17; Temp 98.9(O); Pulse Ox 98% on R/A; Weight 83.91 kg ll3 (R); Height 5 ft. 6 in. (167.64 cm) (R); Pain 4/10; 19:35 BP 150 / 90; Pulse 80; Resp 18 S; Pulse Ox 96% on R/A; ha1 20:03 BP 147 / 97; Pulse 80; Resp 16 S; Pulse Ox 96% on R/A; ha1 19:12 Body Mass Index 29.86 (83.91 kg, 167.64 cm) ll3 ED Course: 19:02 Patient arrived in ED. mr 19:02 Jeffry Bonilla, is Private Physician. mr 19:03 Patient has correct armband on for positive identification. Placed in gown. Bed in low ha1 position. Call light in reach. Side rails up X 1. 19:07 [facility]C [facility]. snw 19:07 Isaiah De Luna MD is Attending Physician. snw 19:14 Triage completed. ll3 19:14 Arm band placed on Patient placed in an exam room, on a stretcher, on pulse oximetry. ll3 19:19 Marcela Etienne, RN is Primary Nurse. ha1 19:25 Jeffry Bonilla DO is Referral Physician. snw 20:04 No provider procedures requiring assistance completed. Patient did not have IV access ha1 during this emergency room visit. Administered Medications: 19:44 Drug: Rocephin (cefTRIAXone) 1 grams Route: IM; Site: right vastus lateralis; ha1 20:03 Follow up: Response: No adverse reaction ha1 Medication: 20:05 VIS not applicable for this client. ha1 Outcome: 19:25 Discharge ordered by . snw 20:04 Discharged to home ambulatory. ha1 20:04 Condition: stable 20:04 Discharge instructions given to patient, Instructed on discharge instructions, follow up and referral plans. medication usage, Demonstrated understanding of instructions, follow-up care, medications, Prescriptions given X 1. 20:05 Patient left the ED. ha1 Signatures: Anay Lao FNP-C SPEEDER WORKER-Kaitlynn Joanne TranCleo, RN RN 3 Marcela Etienne, MELIA RN ha1
--- NOTE | 2022-10-22 19:25 | EDPHYS ---
Physician Documentation [facility] Name: Triny Nj Age: 81 yrs Sex: Female : 1940 Arrival Date: 10/22/2022 Time: 19:02 Bed 18 Private MD: [facility] ED Physician Isaiah De Luna HPI: 10/22 19:28 This 81 yrs old Female presents to ER via Ambulatory with complaints of Urinary snw Problem, Fever. 19:28 The patient presents with urinary symptoms, dysuria, frequency, hesitancy, urgency. snw Onset: The symptoms/episode began/occurred acutely. Associated signs and symptoms: Pertinent positives: cramping, dysuria, Pertinent negatives: diarrhea, nausea, vomiting. Severity of symptoms: At their worst the symptoms were mild, moderate. The patient has experienced a previous episode, but today's symptoms are not as bad as this previous episode. sees Dr. Bonilla. Historical: - Allergies: 19:14 Adhesives; ll3 19:14 Bactrim; ll3 19:14 MAGNESIUM SALT; ll3 19:14 MSG; ll3 19:14 Nitrofurantoin Macrocrystal; ll3 19:14 Sulfa (Sulfonamide Antibiotics); ll3 19:14 Vancomycin; ll3 - PMHx: 19:14 Cancer, Breast; Hyperlipidemia; Hypertension; hyperthyroidism; Hypothyroidism; ll3 - PSHx: 19:14 Cholecystectomy; ll3 - Immunization history:: Client reports receiving the 2nd dose of the Covid vaccine. - Social history:: Smoking status: Patient denies any tobacco usage or history of. ROS: 19:31 Constitutional: Negative for fever, chills, and weight loss, Eyes: Negative for injury, snw pain, redness, and discharge, ENT: Negative for injury, pain, and discharge, Neck: Negative for injury, pain, and swelling, Cardiovascular: Negative for chest pain, palpitations, and edema, Respiratory: Negative for shortness of breath, cough, wheezing, and pleuritic chest pain, Back: Negative for injury and pain, MS/Extremity: Negative for injury and deformity, Skin: Negative for injury, rash, and discoloration, Neuro: Negative for headache, weakness, numbness, tingling, and seizure, Psych: Negative for depression, anxiety, suicide ideation, homicidal ideation, and hallucinations. 19:31 Abdomen/GI: Positive for abdominal cramps, Negative for nausea and vomiting, diarrhea. 19:31 : Positive for urinary symptoms, small amounts, burning with urination. Exam: 19:31 Constitutional: This is a well developed, well nourished patient who is awake, alert, snw and in no acute distress. Head/Face: Normocephalic, atraumatic. Eyes: Pupils equal round and reactive to light, extra-ocular motions intact. Lids and lashes normal. Conjunctiva and sclera are non-icteric and not injected. Cornea within normal limits. Periorbital areas with no swelling, redness, or edema. ENT: Nares patent. No nasal discharge, no septal abnormalities noted. Tympanic membranes are normal and external auditory canals are clear. Oropharynx with no redness, swelling, or masses, exudates, or evidence of obstruction, uvula midline. Mucous membranes moist. Neck: Trachea midline, no thyromegaly or masses palpated, and no cervical lymphadenopathy. Supple, full range of motion without nuchal rigidity, or vertebral point tenderness. No Meningismus. Chest/axilla: Normal chest wall appearance and motion. Nontender with no deformity. No lesions are appreciated. Cardiovascular: Regular rate and rhythm with a normal S1 and S2. No gallops, murmurs, or rubs. Normal PMI, no JVD. No pulse deficits. Respiratory: Lungs have equal breath sounds bilaterally, clear to auscultation and percussion. No rales, rhonchi or wheezes noted. No increased work of breathing, no retractions or nasal flaring. Abdomen/GI: Soft, non-tender, with normal bowel sounds. No distension or tympany. No guarding or rebound. No evidence of tenderness throughout. Back: No spinal tenderness. No costovertebral tenderness. Full range of motion. Skin: Warm, dry with normal turgor. Normal color with no rashes, no lesions, and no evidence of cellulitis. MS/ Extremity: Pulses equal, no cyanosis. Neurovascular intact. Full, normal range of motion. Neuro: Awake and alert, GCS 15, oriented to person, place, time, and situation. Cranial nerves II-XII grossly intact. Motor strength 5/5 in all extremities. Sensory grossly intact. Cerebellar exam normal. Normal gait. Psych: Awake, alert, with orientation to person, place and time. Behavior, mood, and affect are within normal limits. Vital Signs: 19:12 BP 158 / 108; Pulse 93; Resp 17; Temp 98.9(O); Pulse Ox 98% on R/A; Weight 83.91 kg ll3 (R); Height 5 ft. 6 in. (167.64 cm) (R); Pain 4/10; 19:35 BP 150 / 90; Pulse 80; Resp 18 S; Pulse Ox 96% on R/A; ha1 20:03 BP 147 / 97; Pulse 80; Resp 16 S; Pulse Ox 96% on R/A; ha1 19:12 Body Mass Index 29.86 (83.91 kg, 167.64 cm) ll3 MDM: 19:12 Patient medically screened. snw 19:27 Differential diagnosis: bacterial infection, UTI, gastroenteritis. Data reviewed: vital snw signs, nurses notes, lab test result(s), urinalysis. Counseling: I had a detailed discussion with the patient and/or guardian regarding: the historical points, exam findings, and any diagnostic results supporting the discharge/admit diagnosis, the presence of at least one elevated blood pressure reading (>120/80) during this emergency department visit, the need for outpatient follow up, for definitive care, to return to the emergency department if symptoms worsen or persist or if there are any questions or concerns that arise at home. Special discussion: I have referred the patient to see his PCP for further evaluation of high blood pressure. Based on the history and exam findings, there is no indication for further emergent testing or inpatient evaluation. I discussed with the patient/guardian the need to see the primary care provider for further evaluation of the symptoms. 10/22 19:24 Order name: Urine Culture snw 10/22 19:24 Order name: Urine Microscopic Only snw 10/22 19:38 Order name: Urine Dipstick-Ancillary; Complete Time: 19:52 EDMS Administered Medications: 19:44 Drug: Rocephin (cefTRIAXone) 1 grams Route: IM; Site: right vastus lateralis; ha1 20:03 Follow up: Response: No adverse reaction ha1 Disposition Summary: 10/22/22 19:25 Discharge Ordered Location: Home snw Condition: Stable snw Diagnosis - UTI/ Urinary tract infection, site not specified snw Followup: snw - With: Jeffry Bonilla DO - When: 2 - 3 days - Reason: Recheck today's complaints, Continuance of care, Re-evaluation by your physician Followup: snw - With: Emergency Department - When: As needed - Reason: Worsening of condition Discharge Instructions: - Discharge Summary Sheet snw - Hypertension, Adult snw - Urinary Tract Infection, Adult snw - Rehydration, Adult snw - Form - Blood Pressure Record Sheet snw Forms: - Medication Reconciliation Form snw - Thank You Letter snw - Antibiotic Education snw - Prescription Opioid Use snw Prescriptions: - cefpodoxime 200 mg Oral Tablet - take 1 tablet by ORAL route every 12 hours for 10 days with food; 20 tablet; snw Refills: 0, Product Selection Permitted Signatures: Dispatcher [employer] EDMS Anay Lao FNP-C BAKER-[facility] Cleo Nuñez, RN RN ll3 Marcela Etienne RN RN ha1
--- OUTSIDE RECORDS SUMMARY | 2022-10-22 19:34 | XMS REPORT | Continuity of Care Document ---
:1940 Author Organization [facility] t Address [address] [place] [address] Care Team Providers Name Role Phone Corazon Singh MD Primary Care Physician [phone] SYSTEM, PROVIDER NOT IN Attending Clinician Unavailable Jeffry Bonilla Attending Clinician Unavailable LIGIA FU Attending Clinician Unavailable ISAEL LANZA Attending Clinician Unavailable IRIS CLAY Attending Clinician Unavailable ELISSA HI Attending Clinician Unavailable SHALONDA SOLARES Attending Clinician Unavailable IGNACIO SQUIRES Attending Clinician Unavailable ANDREA DYKES Attending Clinician Unavailable PETEY RIZO Attending Clinician Unavailable Isael Lanza MD Attending Clinician Field-Hrt, Visual Attending Clinician Unavailable SAVI PARK Attending Clinician Unavailable 3, Ods Attending Clinician Unavailable Payers Payer Name Policy Type Policy Number Effective Date Expiration Date S bridger MEDICARE PART A [id number] 2007 AND B 00:00:00 LIFE [id number] 2008 INSURANCE 00:00:00 MEDICARE PART A [id number] \T\ B - MEDICARE MEDICARE [id number] 2008 SUPPLEMENT 00:00:00 MEDIGAP-GENERIC [id number] - GENERIC PAYOR [facility] MEDICARE [id number] 2008 SUPPLEMENT PLAN 00:00:00 - [facility] MEDICARE XAVI EVERETT [id number] [facility] C1 [id number] [facility] C1 [id number] [facility] MEDICARE XAVI EVERETT [id number] [facility] Problems Condition Condition Condition Status Onset Resolution Last Treating Co mments Source Name Details Category Date Date Treatment Clinician Date Blephariti Blephariti Disease Active [facility] s s 9-13 College 00:00: of 00 Medicin e 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 both 4-11 [facility]em ege eyes eyes 00:00: of 00 Medicin e Madarosis Madarosis Disease Active 2014-08 [place] gregorio 0-12 College 00:00: of 00 Medicin e POAG POAG Disease Active [facility] (primary (primary 4-15 Colleg e 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) 00 Medi faina e Eyelid Eyelid Disease Active [facility] lesion lesion 3-23 College 00:00: of 00 Medicin e 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 2-10 College degenerati degenerati 00:00: of on of left on of left 00 Me dicin retina retina e Pseudophak Pseudophak Disease Active 2011-08 Zuleyka aldridge ia ia 2-10 College 00:00: of 00 Medicin e Cataract, Cataract, Disease Active 2011-08 [place] greg[place] left eye left eye 2-10 Colleg e 00:00: of 00 Medicin e Cataract, Cataract, Disease Active 2011-08 [place] g[place] left eye left eye 2-10 Colleg e 00:00: of 00 Medicin e 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 00:00: of 00 Medicin e Primary Primary Disease Active Overview: [facility] open-angle open-angle 09-23 Severe: C ollege glaucoma(3 glaucoma(3 00:00: [place] OD of 65.11) 65.11) 00 1996; YAG Medicin Cap OD e 2000; SLT OD 11-03-10 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 09-23 OD 1995 C ollege with giant with giant 00:00: of retinal retinal 00 Medicin tear tear e [id number] Body mass Problem Com mon index Spirit [BMI] - 30.0-30.9, [facility] [id number] Other Problem Common obesity Spirit due to - [facility] excess [facility] [id number] Essential Problem Comm on hypertensi Spirit on [facility] [id number] Thyroid Problem Common disease [facility] [id number] History of Problem Co mmon breast Spirit cancer [facility] [id number] 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 [facility] [id number] Dyslipidem Problem Co mmon ia [facility] [id number] History of Problem Co mmon melanoma [facility] [id number] Mixed Problem Common hyperlipid Spirit emia [facility] [id number] History of Problem Co mmon radiation Spirit exposure [facility] [id number] 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 [facility] [id number] Hypothyroi Problem Com mon dism, Spirit unspecifie - d type [facility] Allergies, Adverse Reactions, Alerts Allergy Allergy Status Severity Reaction(s) Onset Inactive Treating Comm ents Source Name Type Date Date Clinician NITROFUR DRUG Active High Anaphylaxis 2017-0 MD ANTOIN 2-08 Anderso MACROCRY 00:00: n STAL 00 VANCOMYC Drug Active High Anaphylaxis 2017-0 MD IN Class 2-08 Anderso ANALOGUE 00:00: n S 00 NITROFUR DRUG Active High Anaphylaxis 2017-0 MD ANTOIN 2-08 Anderso MACROCRY 00:00: n STAL 00 VANCOMYC Drug Active High Anaphylaxis 2017-0 MD IN Class 2-08 Anderso ANALOGUE 00:00: n S 00 NITROFUR DRUG Active High Anaphylaxis 2017-0 MD ANTOIN 2-08 Anderso MACROCRY 00:00: n STAL 00 VANCOMYC Drug Active High Anaphylaxis 2017-0 MD IN Class 2-08 Anderso ANALOGUE 00:00: n S 00 NITROFUR DRUG Active High Anaphylaxis 2017-0 MD ANTOIN 2-08 Anderso MACROCRY 00:00: n STAL 00 VANCOMYC Drug Active High Anaphylaxis 2017-0 MD IN Class 2-08 Anderso ANALOGUE 00:00: n S 00 NITROFUR DRUG Active High Anaphylaxis 2017-0 MD ANTOIN 2-08 Anderso MACROCRY 00:00: n STAL 00 VANCOMYC Drug Active High Anaphylaxis 2017-0 MD IN Class 2-08 Anderso ANALOGUE 00:00: n S 00 NITROFUR DRUG Active High Anaphylaxis 2017-0 MD ANTOIN 2-08 Anderso MACROCRY 00:00: n STAL 00 VANCOMYC Drug Active High Anaphylaxis 2017-0 MD IN Class 2-08 Anderso ANALOGUE 00:00: n S 00 NITROFUR DRUG Active High Anaphylaxis 2017-0 MD ANTOIN 2-08 Anderso MACROCRY 00:00: n STAL 00 VANCOMYC Drug Active High Anaphylaxis 2017-0 MD IN Class 2-08 Anderso ANALOGUE 00:00: n S 00 NITROFUR DRUG Active High Anaphylaxis 2017-0 MD ANTOIN 2-08 Anderso MACROCRY 00:00: n STAL 00 VANCOMYC Drug Active High Anaphylaxis 2017-0 MD IN Class 2-08 Anderso ANALOGUE 00:00: n S 00 NITROFUR DRUG Active High Anaphylaxis 2017-0 MD ANTOIN 2-08 Anderso MACROCRY 00:00: n STAL 00 VANCOMYC Drug Active High Anaphylaxis 2017-0 MD IN Class 2-08 Anderso ANALOGUE 00:00: n S 00 NITROFUR DRUG Active High Anaphylaxis 2017-0 MD ANTOIN 2-08 Anderso MACROCRY 00:00: n STAL 00 VANCOMYC Drug Active High Anaphylaxis 2017-0 MD IN Class 2-08 Anderso ANALOGUE 00:00: n S 00 VANCOMYC Drug Active High Anaphylaxis 2017-0 MD IN Class 2-08 Anderso ANALOGUE 00:00: n S 00 CREAM DRUG Active 2017-0 MD BASE 2-08 Anderso NO.165 00:00: n (BULK) 00 NITROFUR DRUG Active High Anaphylaxis 2017-0 MD ANTOIN 2-08 Anderso MACROCRY 00:00: n STAL 00 VANCOMYC Drug Active High Anaphylaxis 2017-0 MD IN Class 2-08 Anderso ANALOGUE 00:00: n S 00 CREAM DRUG Active 2017-0 MD BASE 2-08 Anderso NO.165 00:00: n (BULK) 00 NITROFUR DRUG Active High Anaphylaxis 2017-0 MD ANTOIN 2-08 Anderso MACROCRY 00:00: n STAL 00 VANCOMYC Drug Active High Anaphylaxis 2017-0 MD IN Class 2-08 Anderso ANALOGUE 00:00: n S 00 CREAM DRUG Active 2017-0 MD BASE 2-08 Anderso NO.165 00:00: n (BULK) 00 NITROFUR DRUG Active High Anaphylaxis 2017-0 MD ANTOIN 2-08 Anderso MACROCRY 00:00: n STAL 00 VANCOMYC Drug Active High Anaphylaxis 2017-0 MD IN Class 2-08 Anderso ANALOGUE 00:00: n S 00 CREAM DRUG Active 2017-0 MD BASE 2-08 Anderso NO.165 00:00: n (BULK) 00 NITROFUR DRUG Active High Anaphylaxis 2017-0 MD ANTOIN 2-08 Anderso MACROCRY 00:00: n STAL 00 VANCOMYC Drug Active High Anaphylaxis 2017-0 MD IN Class 2-08 Anderso ANALOGUE 00:00: n S 00 CREAM DRUG Active 2017-0 MD BASE 2-08 Anderso NO.165 00:00: n (BULK) 00 NITROFUR DRUG Active High Anaphylaxis 2017-0 MD ANTOIN 2-08 Anderso MACROCRY 00:00: n STAL 00 VANCOMYC Drug Active High Anaphylaxis 2017-0 MD IN Class 2-08 Anderso ANALOGUE 00:00: n S 00 CREAM DRUG Active 2017-0 MD BASE 2-08 Anderso NO.165 00:00: n (BULK) 00 NITROFUR DRUG Active High Anaphylaxis 2017-0 MD ANTOIN 2-08 Anderso MACROCRY 00:00: n STAL 00 VANCOMYC Drug Active High Anaphylaxis 2017-0 MD IN Class 2-08 Anderso ANALOGUE 00:00: n S 00 CREAM DRUG Active 2017-0 MD BASE 2-08 Anderso NO.165 00:00: n (BULK) 00 NITROFUR DRUG Active High Anaphylaxis 2017-0 MD ANTOIN 2-08 Anderso MACROCRY 00:00: n STAL 00 VANCOMYC Drug Active High Anaphylaxis 2017-0 MD IN Class 2-08 Anderso ANALOGUE 00:00: n S 00 CREAM DRUG Active 2017-0 MD BASE 2-08 Anderso NO.165 00:00: n (BULK) 00 NITROFUR DRUG Active High Anaphylaxis 2017-0 MD ANTOIN 2-08 Anderso MACROCRY 00:00: n STAL 00 VANCOMYC Drug Active High Anaphylaxis 2017-0 MD IN Class 2-08 Anderso ANALOGUE 00:00: n S 00 CREAM DRUG Active 2017-0 MD BASE 2-08 Anderso NO.165 00:00: n (BULK) 00 NITROFUR DRUG Active High Anaphylaxis 2017-0 MD ANTOIN 2-08 Anderso MACROCRY 00:00: n STAL 00 VANCOMYC Drug Active High Anaphylaxis 2017-0 MD IN Class 2-08 Anderso ANALOGUE 00:00: n S 00 CREAM DRUG Active 2017-0 MD BASE 2-08 Anderso NO.165 00:00: n (BULK) 00 NITROFUR DRUG Active High Anaphylaxis 2017-0 MD ANTOIN 2-08 Anderso MACROCRY 00:00: n STAL 00 Adhesive Propensi Active 2015-08 Rash, [facility] ty to 1-15 tears, College adverse 00:00: of reaction 00 Medicin s to e substanc e Adhesive Drug Active 2015-08 Rash[facility] Sulfa Drug Active 2015-[address] [facility] [facility] (Sulfona Allergy 1-15 [facility] Antibiot 00 Center ics) Adhesive Drug Active 2015-08 Rash, [facility] 1-[facility] Sulfa Drug Active 2015-[address] [facility] (Sulfona Allergy 1-15 [facility] Antibiot 00 Center ics) Nitrofur Propensi Active [facility] antoin ty to 9-13 College Monohyd adverse 00:00: of Macro reaction 00 Medicin s to e drug PROPOXYP DRUG Active MD QUISPE INGREDI 09-23 Anderso 00:00: n 00 PROPOXYP DRUG Active MD QUISPE INGREDI 09-23 Anderso 00:00: n 00 PROPOXYP DRUG Active MD QUISPE INGREDI 09-23 Anderso 00:00: n 00 PROPOXYP DRUG Active MD QUISPE INGREDI 09-23 Anderso 00:00: n 00 PROPOXYP DRUG Active MD QUISPE INGREDI 09-23 Anderso 00:00: n 00 PROPOXYP DRUG Active 2015- MD QUISPE INGREDI 09-23 Anderso 00:00: n 00 PROPOXYP DRUG Active MD QUISPE INGREDI 09-23 Anderso 00:00: n 00 PROPOXYP DRUG Active MD HENE INGREDI 09-23 Anderso 00:00: n 00 PROPOXYP DRUG Active MD HENE INGREDI 09-23 Anderso 00:00: n 00 PROPOXYP DRUG Active MD HENE INGREDI 09-23 Anderso 00:00: n 00 Propoxyp Propensi Active [facility] hene And ty to 09-23 [place] Methadon adverse 00:00: of e reaction 00 Medicin s to e drug ADHESIVE DRUG Active Hives MD TAPE-HERMANN 1-20 Anderso ICONES 00:00: n 00 MONOSODI DRUG Active MD UM INGREDI -20 Anderso GLUTAMAT 00:00: n E 00 ADHESIVE DRUG Active Hives MD TAPE-HERMANN 1-20 Anderso ICONES 00:00: n 00 ADHESIVE DRUG Active Hives 0 MD TAPE-HERMANN 1-20 Anderso ICONES 00:00: n 00 ADHESIVE DRUG Active Hives 0 MD TAPE-HERMANN 1-20 Anderso ICONES 00:00: n 00 ADHESIVE DRUG Active Hives 2015-0 MD TAPE-HERMANN 1-20 Anderso ICONES 00:00: n 00 ADHESIVE DRUG Active Hives 0 MD TAPE-HERMANN 1-20 Anderso ICONES 00:00: n 00 ADHESIVE DRUG Active Hives 2015-0 MD TAPE-HERMANN 1-20 Anderso ICONES 00:00: n 00 ADHESIVE DRUG Active Hives 2015-0 MD TAPE-HERMANN 1-20 Anderso ICONES 00:00: n 00 ADHESIVE DRUG Active Hives 2015-0 MD TAPE-HERMANN 1-20 Anderso ICONES 00:00: n 00 ADHESIVE DRUG Active Hives 2015-0 MD TAPE-HERMANN 1-20 Anderso ICONES 00:00: n 00 ADHESIVE DRUG Active Hives 0 MD TAPE-HERMANN 1-20 Anderso ICONES 00:00: n 00 SULFA Drug Active 2015-0 MD (SULFONA Class 1-20 Anderso MIDE 00:00: n ANTIBIOT 00 ICS) ADHESIVE DRUG Active Hives 0 MD TAPE-HERMANN 1-20 Anderso ICONES 00:00: n 00 SULFA Drug Active 2015-0 MD (SULFONA Class 1-20 Anderso MIDE 00:00: n ANTIBIOT 00 ICS) ADHESIVE DRUG Active Hives MD TAPE-HERMANN 1-20 Anderso ICONES 00:00: n 00 SULFA Drug Active 2015- MD (SULFONA Class 1-20 Anderso MIDE 00:00: n ANTIBIOT 00 ICS) ADHESIVE DRUG Active Hives MD TAPE-HERMANN 1-20 Anderso ICONES 00:00: n 00 SULFA Drug Active MD (SULFONA Class 1-20 Anderso MIDE 00:00: n ANTIBIOT 00 ICS) ADHESIVE DRUG Active Hives MD TAPE-HERMANN 1-20 Anderso ICONES 00:00: n 00 SULFA Drug Active MD (SULFONA Class 1-20 Anderso MIDE 00:00: n ANTIBIOT 00 ICS) ADHESIVE DRUG Active Hives MD TAPE-HERMANN 1-20 Anderso ICONES 00:00: n 00 SULFA Drug Active MD (SULFONA Class 1-20 Anderso MIDE 00:00: n ANTIBIOT 00 ICS) ADHESIVE DRUG Active Hives MD TAPE-HERMANN 1-20 Anderso ICONES 00:00: n 00 SULFA Drug Active MD (SULFONA Class 1-20 Anderso MIDE 00:00: n ANTIBIOT 00 ICS) ADHESIVE DRUG Active Hives MD TAPE-HERMANN 1-20 Anderso ICONES 00:00: n 00 SULFA Drug Active 2015- MD (SULFONA Class 1-20 Anderso MIDE 00:00: n ANTIBIOT 00 ICS) ADHESIVE DRUG Active Hives MD TAPE-HERMANN 1-20 Anderso ICONES 00:00: n 00 SULFA Drug Active MD (SULFONA Class 1-20 Anderso MIDE 00:00: n ANTIBIOT 00 ICS) ADHESIVE DRUG Active Hives MD TAPE-HERMANN 1-20 Anderso ICONES 00:00: n 00 SULFA Drug Active 2015-0 MD (SULFONA Class 1-20 Anderso MIDE 00:00: n ANTIBIOT 00 ICS) Vancomyc Propensi Active [facility] in ty to 3-23 College adverse 00:00: of reaction 00 Medicin s to e drug Monosodi Propensi Active [facility] um ty to 323 College Glutamat adverse 00:00: of e reaction 00 Medicin s to e drug Adhesive Propensi Active Redness [place] [facility] Tape ty to 11-16 on skin. [place] adverse 00:00: of reaction 00 Medicin s to e substanc e Bactrim Propensi Active 2011-08 [facility] ty to 2-10 College adverse 00:00: of reaction 00 Medicin s to e drug Sulfa Propensi Active 2011-08 [facility] Antibiot ty to 2-10 College ics adverse 00:00: of reaction 00 Medicin s to e drug nitrofur nitrofur Active Unknown Commo n antoin antoin [facility] Vancomyc Vancomyc Active Unknown Commo n in in [facility] 4993 Drug Active Unknown Common allergy [facility] Social History Social Habit Start Date Stop Date Quantity Comments Source Exposure to Not sure [facility] Colle e SARS-CoV-2 of Medicine (event) History of [facility] - Tobacco Use [facility] Alcohol intake 2016-07-12 2016-07-12 Current [facility] es 00:00:00 00:00:00 non-drinker of Medical Ce nter alcohol (finding) Sex Ass[birth year] At [birth year] [facility] 00:00:00 00:00:00 [facility] Center Smoking Status Start Date Stop Date Source Never Smoker [facility] Medications Ordered Filled Start Stop Current Ordering Indication Dosage Frequency Signature Comments Components Source Medication Medication Date Date Medication? Clinician (SIG) Name Name Biotin 2020-0 Yes Take by [facility] (BIOTIN -17 mouth. College 5000) 5 MG 15:35: of CAPS 53 Medicin e Coenzyme 2020-0 Yes Take by [facility] Q10 (COQ10) - mouth. Colleg e 100 MG CAPS 15:35: of 53 Medicin e lisinopril- 2020-0 Yes 1{tbl} Take 1 Tab [facility] hydrochloro 7-17 by mouth Saleem ege thiazide 15:35: daily. of (PRINZIDE, 53 Medicin ZESTORETIC) e 20-12.5 MG per tablet LUTEIN OR 2020-0 Yes Take by [facility] r 7-17 mouth. College 15:35: of 53 Medicin e Cranberry 2019-0 Yes Take by [facility] 1000 MG 7-17 mouth. [place] CAPS 15:35: of 53 Medicin e Levothyroxi 2019-0 Yes Take by [place] g[place] ne Sodium 7-17 mouth. [place] (SYNTHROID 15:35: of OR) 53 Medicin e Cyanocobala 2019-0 Yes Take by [place] g[place] min 7-17 mouth. [place] (VITAMIN B 15:35: of 12 OR) 53 Medicin e Multiple 2019-0 Yes Take by [facility] Vitamins-Mi 7-17 mouth. [place]le[place] e nerals 15:35: of (WOMENS 50+ 53 Medicin MULTI e VITAMIN/MIN OR) Probiotic 2020-0 Yes Take by [facility] Product 7-17 mouth. [place] (ALIGN OR) 15:35: of 53 Medicin e docusate 2019-0 Yes 100mg Take 100 [facility] sodium 7-17 mg by [place] (COLACE) 15:35: mouth of 100 MG 53 daily. Medicin capsule e ARMOUR Yes 30mg Take 30 mg [facility] THYROID OR -17 by mouth Colle ge 15:35: daily. of 53 Medicin e Glucosamine Yes Take by [place] gregorio -Chondroit- - mouth. Colleg e Vit C-Mn 14:45: of (GLUCOSAMIN 52 Medicin E CHONDR e 1500 COMPLX) CAPS Calcium Yes Take by [facility] Carbonate 03-25 mouth. [place] (CALCIUM 14:45: of 600) 600 MG 52 Medicin TABS e ANASTROZOLE Yes [facility] 7 [place] 14:45: of 52 Medicin e Hypromellos Yes Apply to Ba ylor e (GENTEAL) 03-25 eye. [place] 0.3 % SOLN 14:45: of 52 Medicin e lisinopril- Yes 1{tbl} Take 1 Tab [facility] hydrochloro 03-25 by mouth Saleem ege thiazide 14:45: daily. of (PRINZIDE, 52 Medicin ZESTORETIC) e 20-12.5 MG per tablet aspirin 81 2018- Yes 81mg Take 81 mg B aylor MG tablet 03-25 by mouth Nithyag e 14:45: daily. of 52 Medicin e LUTEIN OR Yes Take by [facility] - mouth. [place] 14:45: of 52 Medicin e Cranberry 2019-0 Yes Take by [facility] 1000 MG 7-29 mouth. [place] CAPS 14:45: of 52 Medicin e Levothyroxi 2019-0 Yes Take by [place] g[place] ne Sodium 7-29 mouth. [place] (SYNTHROID 14:45: of OR) 52 Medicin e Cyanocobala 2019-0 Yes Take by [place] g[place] min 7-29 mouth. [place] (VITAMIN B 14:45: of 12 OR) 52 Medicin e Multiple 2019-0 Yes Take by [facility] Vitamins-Mi - mouth. Colleg e nerals 14:45: of (WOMENS 50+ 52 Medicin MULTI e VITAMIN/MIN OR) Brinzolamid 2019-0 Yes Apply to Ba ylor e (AZOPT - eye. [place] OP) 14:45: Reported of 52 on Medicin 08/17/2016 e Probiotic 2019-0 Yes Take by [facility] Product 7-29 mouth. [place] (ALIGN OR) 14:45: of 52 Medicin e pyridoxine 2019-0 Yes 100mg Take 100 Ba [facility] 100 MG 7-29 mg by [place] tablet 14:45: mouth of 52 daily. Medicin e docusate 2019-0 Yes 100mg Take 100 [facility] sodium 7-29 mg by [place] (COLACE) 14:45: mouth of 100 MG 52 daily. Medicin capsule e ARMOUR 2019-0 Yes 30mg Take 30 mg [facility] THYROID OR 7-29 by mouth [facility] ge 14:45: daily. of 52 Medicin e HYDROCHLORO 2019-0 Yes 12.5mg Take 12.5 [facility] THIAZIDE OR 7-29 mg by [place] 14:45: mouth. of 52 Medicin e Iron 66 MG 2019-0 Yes Take by [facility] TABS 7-29 mouth. [place] 14:45: of 52 Medicin e Flaxseed, 2019-0 Yes Take by [facility] Linseed, -29 mouth. [place] (FLAX SEED 14:45: of OIL) 1000 52 Medicin MG CAPS e Glucosamine 2019-0 Yes Take by [place] gregorio -Chondroit- 7-29 mouth. [facility] Vit C-Mn 14:45: of (GLUCOSAMIN 52 Medicin E CHONDR e 1500 COMPLX) CAPS Calcium 2019-0 Yes Take by [facility] Carbonate 7- mouth. [place] (CALCIUM 14:45: of 600) 600 MG 52 Medicin TABS e ANASTROZOLE 2019- Yes [facility] 7- College 14:45: of 52 Medicin e Hypromellos Yes Apply to Ba ylor e (GENTEAL) 03-25 eye. [place] 0.3 % SOLN 14:45: of 52 Medicin e aspirin 81 2019- Yes 81mg Take 81 mg B aylor MG tablet 03-25 by mouth Colleg e 14:45: daily. of 52 Medicin e Brinzolamid Yes Apply to Ba ylor e (AZOPT - eye. [place] OP) 14:45: Reported of 52 on Medicin 08/17/2016 e pyridoxine Yes 100mg Take 100 Ba [facility]lor 100 MG - mg by [place] tablet 14:45: mouth of 52 daily. Medicin e HYDROCHLORO Yes 12.5mg Take 12.5 [facility] THIAZIDE OR 7-29 mg by [place] 14:45: mouth. of 52 Medicin e Iron 66 MG Yes Take by [place] or TABS - mouth. [place] 14:45: of 52 Medicin e Flaxseed, 2019 Yes Take by [facility] r Linseed, - mouth. [place] (FLAX SEED 14:45: of OIL) 1000 52 Medicin MG CAPS e Biotin Yes Take by [facility] (BIOTIN - mouth. [place] 5000) 5 MG 14:45: of CAPS 52 Medicin e Coenzyme 2018- Yes Take by [facility] Q10 (COQ10) 03-25 mouth. Colleg e 100 MG CAPS 14:45: of 52 Medicin e COMBIGAN 2018- Yes [id number] 1[drp] Place 1 [facility] 0.2-0.5 % 7-29 Drop into Colle ge ophthalmic 00:00: both eyes of solution 00 two times Medici n daily. e COMBIGAN Yes [id number] 1[drp] Place 1 [place] 0.2-0.5 % 7-29 Drop into Colle ge ophthalmic 00:00: both eyes of solution 00 two times Medici n daily. e exemestane 2015-08 Yes 25mg QD Take [address] (AROMASIN) 1-15 by mouth [facility] 25 mg 10:18: daily. Medical tablet Center multivitade 2015-08 Yes 1{tbl} QD Take [address] n per 1-15 tablet by [facility] tablet 10:18: mouth Medical 51 daily. [place] ferrous 2015-08 Yes 325mg Take 325 [facility] sulfate 325 1-15 mg by [facility] (65 FE) MG 10:18: mouth Medica l tablet 51 daily with Center breakfast. biotin 1 mg 2015-08 Yes 1000ug Q.[id number] Take 1,[address] tablet 1-15 [id number] mcg by [facility] 10:18: 3D mouth 3 Medical 51 (three) Center times daily. cranberry 2015-08 Yes Take by [facility] 500 mg Cap 1-15 mouth. [facility] 10:18: Medical 51 [place] calcium 2015-08 Yes 1{tbl} Take [address] carbonate-v 1-15 tablet by Sean es itamin D3 10:18: mouth 2 Medic al (CALCIUM- 51 (two) Center TAMIN D) times 500 daily with mg(1,250mg) breakfast -200 unit and per tablet dinner. coenzyme 2015-08 Yes 100mg QD Take [address] Q10 100 mg 1-15 mg by [facility] capsule 10:18: mouth Medical 51 daily. [place] cyanocobala 2015-08 Yes 1000ug QD Take 1,[address] [facility] min 1-15 mcg by [facility] (VITAMIN 10:18: mouth Medical B-12) 1000 51 daily. [place] MCG tablet pyridoxine, 2015-08 Yes 100mg QD Take [address] vitamin B6, 1-15 mg by [facility] (VITAMIN 10:18: mouth Medical B-6) 100 MG 51 daily. [place] tablet docusate 2015-08 Yes 100mg Q.5D Take [address] sodium 1-15 mg by [facility] (COLACE) 10:18: mouth 2 Medica l 100 MG 51 (two) Center capsule times daily. lisinopril- 2015-08 Yes 1{tbl} QD Take [address] hydrochloro 1-15 tablet by Sean es thiazide 10:18: mouth Medical (PRINZIDE,Z 51 daily. [place] ESTORETIC) 10-12.5 mg per tablet lovastatin 2015-08 Yes 20mg QD Take [address] (MEVACOR) 1-15 by mouth [facility] 20 MG 10:18: nightly. Medical tablet 51 [place] thyroid, 2015-08 Yes 30mg QD Take [address] [facility] pork, 1-15 by mouth [facility] (ARMOUR 10:18: daily. Medical THYROID) 30 51 Center mg Tab levothyroxi 2015-08 Yes 25ug Take [address] [facility] ne 1-15 mcg by [facility] (SYNTHROID, 10:18: mouth Medic al LEVOTHROID) 51 Every Center 25 MCG morning on tablet an empty stomach. bimatoprost 2015-08 Yes 1[drp] QD Place [address] (LUMIGAN) 1-15 drop into [facility] 0.01 % Drop 10:18: both eyes M edical ophthalmic 51 nightly. Cente r solution brimonidine 2015-08 Yes 1[drp] Q.5D [address] -timolol 1-15 (two) [facility] (COMBIGAN) 10:18: times Medica l 0.2-0.5 % 51 daily. [place] ophthalmic solution exemestane 2015-08 Yes 25mg QD Take [address] (AROMASIN) 1-15 by mouth [facility] 25 mg 10:18: daily. Medical tablet 51 [place] multivitami 2015-08 Yes 1{tbl} QD Take [address] n per 1-15 tablet by [facility] tablet 10:18: mouth Medical 51 daily. [place] ferrous 2015-08 Yes 325mg Take 325 [facility] sulfate 325 1-15 mg by [facility] (65 FE) MG 10:18: mouth Medica l tablet 51 daily with Center breakfast. biotin 1 mg 2015-08 Yes 1000ug Q.[id number] Take 1,[address] tablet 1-15 [id number] mcg by [facility] 10:18: 3D mouth 3 Medical 51 (three) Center times daily. cranberry 2015-08 Yes Take by [facility] 500 mg Cap 1-15 mouth. [facility] 10:18: Medical 51 Center calcium 2015-08 Yes 1{tbl} Take [address] carbonate-v 1-15 tablet by Sean es itamin D3 10:18: mouth 2 Medic al (CALCIUM- 51 (two) Center TAMIN D) times 500 daily with mg(1,250mg) breakfast -200 unit and per tablet dinner. coenzyme 2015-08 Yes 100mg QD Take [address] Q10 100 mg 1-15 mg by [facility] capsule 10:18: mouth Medical 51 daily. [place] cyanocobala 2015-08 Yes 1000ug QD Take 1,[address] min 1-15 mcg by [facility] (VITAMIN 10:18: mouth Medical B-12) 1000 51 daily. [place] MCG tablet pyridoxine, 2015-08 Yes 100mg QD Take [address] vitamin B6, 1-15 mg by [facility] (VITAMIN 10:18: mouth Medical B-6) 100 MG 51 daily. [place] tablet docusate 2015-08 Yes 100mg Q.5D Take [address] sodium 1-15 mg by [facility] (COLACE) 10:18: mouth 2 Medica l 100 MG 51 (two) Center capsule times daily. lisinopril- 2015-08 Yes 1{tbl} QD Take [address] hydrochloro 1-15 tablet by Sean es thiazide 10:18: mouth Medical (PRINZIDE,Z 51 daily. [place] ESTORETIC) 10-12.5 mg per tablet lovastatin 2015-08 Yes 20mg QD Take [address] (MEVACOR) 1-15 by mouth [facility] 20 MG 10:18: nightly. Medical tablet 51 [place] thyroid, 2015-08 Yes 30mg QD Take [address] [facility] pork, 1-15 by mouth [facility] (ARMOUR 10:18: daily. Medical THYROID) 30 51 Center mg Tab levothyroxi 2015-08 Yes 25ug Take [address] ne 1-15 mcg by [facility] (SYNTHROID, 10:18: mouth Medic al LEVOTHROID) 51 Every Center 25 MCG morning on tablet an empty stomach. bimatoprost 2015-08 Yes 1[drp] QD Place [address] [facility] (LUMIGAN) 1-15 [facility] 0.01 % Drop 10:18: both eyes M edical ophthalmic 51 nightly. Cente r solution brimonidine 2015-08 Yes 1[drp] Q.5D [address] [facility] -timolol 1-15 (two) [facility] (COMBIGAN) 10:18: times Medica l 0.2-0.5 % 51 daily. [place] ophthalmic solution exemestane 2015-08 Yes 25mg QD Take [address] (AROMASIN) 1-15 by mouth [facility] 25 mg 10:18: daily. Medical tablet 51 [place] multivitami 2015-08 Yes 1{tbl} QD Take [address] [facility] n per 1-15 tablet by [facility] tablet 10:18: mouth Medical 51 daily. [place] ferrous 2015-08 Yes 325mg Take 325 [facility] sulfate 325 1-15 mg by [facility] (65 FE) MG 10:18: mouth Medica l tablet 51 daily with Center breakfast. biotin 1 mg 2015-08 Yes 1000ug [id number] Take 1,[address] [facility] tablet 1-15 [id number] mcg by [facility] 10:18: 3D mouth 3 Medical 51 (three) Center times daily. cranberry 2015-08 Yes Take by [facility] mg Cap 1-15 [facility] 10:18: Medical 51 [place] calcium 2015-08 Yes 1{tbl} Take [address] [facility] carbonate-v 1-15 tablet by [facility] itamin D3 10:18: mouth 2 Medic al (CALCIUM- 51 (two) Center TAMIN D) times 500 daily with mg(1,250mg) breakfast -200 unit and per tablet dinner. coenzyme 2015-08 Yes 100mg QD Take [address] Q10 100 mg 1-15 mg by [facility] capsule 10:18: mouth Medical 51 daily. [place] cyanocobala 2015-08 Yes 1000ug QD Take 1,[address] [facility] min 1-15 mcg by [facility] (VITAMIN 10:18: mouth Medical B-12) 1000 51 daily. Center MCG tablet pyridoxine, 2015-08 Yes 100mg QD Take [address] vitamin B6, 1-15 mg by [facility] (VITAMIN 10:18: mouth Medical B-6) 100 MG 51 daily. [place] tablet docusate 2015-08 Yes 100mg Q.5D Take [address] [facility] sodium 1-15 mg by [facility] (COLACE) 10:18: mouth 2 Medica l 100 MG 51 (two) Center capsule times daily. lisinopril- 2015-08 Yes 1{tbl} QD Take [address] hydrochloro 1-15 tablet by [facility] thiazide 10:18: mouth Medical (PRINZIDE,Z 51 daily. [place] ESTORETIC) 10-12.5 mg per tablet lovastatin 2015-08 Yes 20mg QD Take [address] (MEVACOR) 1-15 by mouth [facility] 20 MG 10:18: nightly. Medical tablet 51 Center thyroid, 2015-08 Yes 30mg QD Take [address] [facility] pork, 1-15 by mouth [facility] (ARMOUR 10:18: daily. Medical THYROID) 30 51 Center mg Tab levothyroxi 2015-08 Yes 25ug Take [address] [facility] ne 1-15 mcg by [facility] (SYNTHROID, 10:18: mouth Medic al LEVOTHROID) 51 Every Center 25 MCG morning on tablet an empty stomach. levothyroxi 2015-08 Yes 25ug Take [address] [facility] ne 1-15 mcg by [facility] (SYNTHROID, 10:18: mouth Medic al LEVOTHROID) 51 Every Center 25 MCG morning on tablet an empty stomach. bimatoprost 2015-08 Yes 1[drp] QD Place [address] [facility] (LUMIGAN) 1-15 [facility] into [facility] 0.01 % Drop 10:18: both eyes M edical ophthalmic 51 nightly. Cente r solution brimonidine 2015-08 Yes 1[drp] Q.5D [address] [facility] [address] -timolol 1-15 (two) [facility] (COMBIGAN) 10:18: times Medica l 0.2-0.5 % 51 daily. [place] ophthalmic solution exemestane 2015-08 Yes 25mg QD Take [address] (AROMASIN) 1-15 by [facility] 25 mg 10:18: daily. Medical tablet 51 Center multivitami 2015-08 Yes 1{tbl} QD Take [address] n per 1-15 tablet by [facility] tablet 10:18: mouth Medical 51 daily. Center ferrous 2015-08 Yes 325mg Take 325 [facility] sulfate 325 1-15 mg by [facility] (65 FE) MG 10:18: mouth Medica l tablet 51 daily with Center breakfast. biotin 1 mg 2015-08 Yes 1000ug [id number] Take 1,[address] tablet 1-15 [id number] mcg by [facility] 10:18: 3D mouth 3 Medical 51 (three) Center times daily. cranberry 2015-08 Yes Take by [facility] 500 mg Cap 1-15 [facility] 10:18: Medical 51 Center calcium 2015-08 Yes 1{tbl} Take [address] [facility] [address] carbonate-v 1-15 tablet by [facility] itamin D3 10:18: mouth 2 Medic al (CALCIUM- 51 (two) Center TAMIN D) times 500 daily with mg(1,250mg) breakfast -200 unit and per tablet dinner. coenzyme 2015-08 Yes 100mg QD Take [address] Q10 100 mg 1-15 mg by [facility] capsule 10:18: mouth Medical 51 daily. [place] cyanocobala 2015-08 Yes 1000ug QD Take 1,[address] [facility] min 1-15 mcg by [facility] (VITAMIN 10:18: mouth Medical B-12) 1000 51 daily. [place] MCG tablet pyridoxine, 2015-08 Yes 100mg QD Take [address] vitamin B6, 1-15 mg by [facility] (VITAMIN 10:18: mouth Medical B-6) 100 MG 51 daily. [place] tablet docusate 2015-08 Yes 100mg Q.5D Take [address] sodium 1-15 mg by [facility] (COLACE) 10:18: mouth 2 Medica l 100 MG 51 (two) Center capsule times daily. lisinopril- 2015-08 Yes 1{tbl} QD Take [address] hydrochloro 1-15 tablet by [facility] thiazide 10:18: mouth Medical (PRINZIDE,Z 51 daily. [place] ESTORETIC) 10-12.5 mg per tablet lovastatin 2015-08 Yes 20mg QD Take [address] (MEVACOR) 1-15 by [facility] 20 MG 10:18: nightly. Medical tablet 51 Center thyroid, 2015-08 Yes 30mg QD Take [address] [facility] pork, 1-15 by mouth [facility] (ARMOUR 10:18: daily. Medical THYROID) 30 51 Center mg Tab bimatoprost 2015-08 Yes 1[drp] QD Place [address] [facility] (LUMIGAN) 1-15 drop into [facility] 0.01 % Drop 10:18: both eyes M edical ophthalmic 51 nightly. Cente r solution brimonidine 2015-08 Yes 1[drp] Q.5D [address] [facility] -timolol 1-15 (two) [facility] (COMBIGAN) 10:18: times Medica l 0.2-0.5 % 51 daily. [place] ophthalmic solution exemestane Yes [facility] (AROMASIN) 203 [facility] 25 MG 00:00: of tablet 00 Medicin e exemestane Yes [facility] (AROMASIN) 203 [facility] 25 MG 00:00: of tablet 00 Medicin e clobetasol Yes [facility] (TEMOVATE) 1 College 0.05 % 00:00: of cream 00 Medicin e clobetasol Yes [facility] (TEMOVATE) 1-21 College 0.05 % 00:00: of cream 00 Medicin e lovastatin Yes [facility] (MEVACOR) 9-15 College 20 MG 00:00: of tablet 00 Medicin e lovastatin Yes [facility] (MEVACOR) 9-15 College 20 MG 00:00: of tablet 00 Medicin e cephALEXin Yes [facility] (KEFLEX) 9-14 [facility] 500 MG 00:00: of capsule Medicin e cephALEXin Yes [facility] (KEFLEX) 9-14 [facility] 500 MG 00:00: of capsule 00 Medicin e ondansetron Yes [facility] (ZOFRAN) 4 8-17 College MG tablet 00:00: of 00 Medicin e ondansetron Yes [facility] (ZOFRAN) 4 8-17 College MG tablet 00:00: of 00 Medicin e Levothyroxi Levothyroxi Yes [place] 1 tablet Common ne Sodium ne Sodium [place] in the Sp amanda morning on - [facility] empty [facility] stomach [facility] Yes [place]ry 1 tablet Commo n Thyroid Thyroid [place] on an [facility] empty - [facility] stomach [facility] CoQ10 100 CoQ10 100 No 1{capsu QD CoQ10 100 MG MG le_with MG _a_meal } Exemestane Exemestane No Exemestane Cran[place] Cranberry No [place] Lovastatin Lovastatin No Lovastatin 20 MG 20 MG 20 MG Lutein-Zeax Lutein-Zeax No Lutein-Oz anthin 25-5 anthin 25-5 xanthin MG MG 25-5 MG [facility] No [place] Thyroid 30 Thyroid 30 Thyroid 30 MG MG MG Multi Multi No Multi Vitamin Vitamin Vitamin Combigan Combigan No Combigan Ondansetron Ondansetron No 1{table QD Ondansetro 4 MG 4 MG t_on_th n 4 MG e_tongu e_and_a llow_to _dissol ve} Lisinopril- Lisinopril- No Lisinopril hydroCHLORO hydroCHLORO -hydroCHLO thiazide thiazide ROthiazide 20-12.5 mg 20-12.5 mg 20-12.5 mg Lisinopril- Lisinopril- No 1{table QD Lisinopril hydroCHLORO hydroCHLORO t} -hydroCHLO thiazide thiazide ROthiazide 20-12.5 MG 20-12.5 MG 20-12.5 MG Levothyroxi Levothyroxi No QD Levothyrox ne Sodium ne Sodium ine Sodium 25 MCG 25 MCG 25 MCG Vitamin D3 Vitamin D3 No Vitamin D3 250 MCG 250 MCG 250 MCG (00131 UT) (12760 UT) (45471 UT) Stool Stool No 1{table QD Stool Softener Softener t_as_ne Softener 100 MG 100 MG eded} 100 MG Levothyroxi Levothyroxi No Levothyrox ne Sodium ne Sodium ine Sodium 25 MCG 25 MCG 25 MCG Lovastatin Lovastatin No QD Lovastatin 20 MG 20 MG 20 MG Biotin 1000 Biotin 1000 No Biotin MCG MCG 1000 MCG Probiotic Probiotic No Probiotic Lutein-Zeax Lutein-Zeax No Lutein-Oz anthin 25-5 anthin 25-5 xanthin MG MG 25-5 MG [place] Thyroid 30 Thyroid 30 Thyroid 30 MG MG MG Lovastatin Lovastatin No Lovastatin 20 mg 20 mg 20 mg Probiotic Probiotic No Probiotic Levothyroxi Levothyroxi No Levothyrox ne Sodium ne Sodium ine Sodium 25 MCG 25 MCG 25 MCG Vitamin D3 Vitamin D3 No Vitamin D3 250 MCG 250 MCG 250 MCG (90074 UT) (15163 UT) (13149 UT) Multi Multi No Multi Vitamin Vitamin Vitamin Biotin 1000 Biotin 1000 No Biotin MCG MCG 1000 MCG Combigan Combigan No Combigan Vitamin B6 Vitamin B6 No Vitamin B6 Vitamin B12 Vitamin B12 No 1{table QD Vitamin 1000 MCG 1000 MCG t} B12 1000 MCG Exemestane Exemestane No Exemestane Cranberry Cranberry No [place] Stool Stool No 1{table QD Stool Softener Softener t_as_ne Softener 100 MG 100 MG eded} 100 MG Lisinopril- Lisinopril- No Lisinopril hydroCHLORO hydroCHLORO -hydroCHLO thiazide thiazide ROthiazide 20-12.5 mg 20-12.5 mg 20-12.5 mg Levothyroxi Levothyroxi No QD Levothyrox ne Sodium ne Sodium ine Sodium 25 MCG 25 MCG 25 MCG Ondansetron Ondansetron No 1{table QD Ondansetro 4 MG 4 MG t_on_ n 4 MG e_tongu e_and_a llow_to _dissol ve} CoQ10 100 CoQ10 100 No 1{capsu QD CoQ10 100 MG MG le_with MG _a_meal } Lutein-Zeax Lutein-Zeax No Lutein-Oz anthin 25-5 anthin 25-5 xanthin MG MG 25-5 MG [facility] No [place] Thyroid 30 Thyroid 30 Thyroid 30 MG MG MG Lovastatin Lovastatin No Lovastatin 20 mg 20 mg 20 mg Probiotic Probiotic No Probiotic Levothyroxi Levothyroxi No Levothyrox ne Sodium ne Sodium ine Sodium 25 MCG 25 MCG 25 MCG Vitamin D3 Vitamin D3 No Vitamin D3 250 MCG 250 MCG 250 MCG (59689 UT) (99920 UT) (25253 UT) Multi Multi No Multi Vitamin Vitamin Vitamin Biotin 1000 Biotin 1000 No Biotin MCG MCG 1000 MCG Combigan Combigan No Combigan Vitamin B6 Vitamin B6 No Vitamin B6 Vitamin B12 Vitamin B12 No 1{table QD Vitamin 1000 MCG 1000 MCG t} B12 1000 MCG Exemestane Exemestane No Exemestane Cranberry Cranberry No [place] Stool Stool No 1{table QD Stool Softener Softener t_as_ne Softener 100 MG 100 MG eded} 100 MG Lisinopril- Lisinopril- No Lisinopril hydroCHLORO hydroCHLORO -hydroCHLO thiazide thiazide ROthiazide 20-12.5 mg 20-12.5 mg 20-12.5 mg Levothyroxi Levothyroxi No QD Levothyrox ne Sodium ne Sodium ine Sodium 25 MCG 25 MCG 25 MCG Ondansetron Ondansetron No 1{table QD Ondansetro 4 MG 4 MG t_on_ n 4 MG e_tongu e_and_a llow_to _dissol ve} CoQ10 100 CoQ10 100 No 1{capsu QD CoQ10 100 MG MG le_with MG _a_meal } Lutein-Zeax Lutein-Zeax No Lutein-Oz anthin 25-5 anthin 25-5 xanthin MG MG 25-5 MG [facility] Thyroid 30 Thyroid 30 Thyroid 30 MG MG MG Lovastatin Lovastatin No QD Lovastatin 20 mg 20 mg 20 mg Probiotic Probiotic No Probiotic Levothyroxi Levothyroxi No Levothyrox ne Sodium ne Sodium ine Sodium 25 MCG 25 MCG 25 MCG Vitamin D3 Vitamin D3 No Vitamin D3 250 MCG 250 MCG 250 MCG (51361 UT) (44063 UT) (47041 UT) Multi Multi No Multi Vitamin Vitamin Vitamin Biotin 1000 Biotin 1000 No Biotin MCG MCG 1000 MCG Combigan Combigan No Combigan Vitamin B6 Vitamin B6 No Vitamin B6 Vitamin B12 Vitamin B12 No 1{table QD Vitamin 1000 MCG 1000 MCG t} B12 1000 MCG Exemestane Exemestane No Exemestane Cranberry Cranberry No [place] Stool Stool No 1{table QD Stool Softener Softener t_as_ne Softener 100 MG 100 MG eded} 100 MG Lisinopril- Lisinopril- No Lisinopril hydroCHLORO hydroCHLORO -hydroCHLO thiazide thiazide ROthiazide 20-12.5 mg 20-12.5 mg 20-12.5 mg Levothyroxi Levothyroxi No QD Levothyrox ne Sodium ne Sodium ine Sodium 25 MCG 25 MCG 25 MCG Ondansetron Ondansetron No 1{table QD Ondansetro 4 MG 4 MG t_on_th n 4 MG e_tongu e_and_a llow_to _dissol ve} CoQ10 100 CoQ10 100 No 1{capsu QD CoQ10 100 MG MG le_with MG _a_meal } Levothyroxi Levothyroxi No QD Levothyrox ne Sodium ne Sodium ine Sodium 25 MCG 25 MCG 25 MCG Lisinopril- Lisinopril- No 1{table QD Lisinopril hydroCHLORO hydroCHLORO t} -hydroCHLO thiazide thiazide ROthiazide 20-12.5 MG 20-12.5 MG 20-12.5 MG Lovastatin Lovastatin No QD Lovastatin 20 MG 20 MG 20 MG Combigan Combigan No Combigan [place] No 1{table QD [place] Thyroid 30 Thyroid 30 t_on_an Thyroid 30 MG MG _empty_ MG stomach } Exemestane Exemestane No Exemestane Ondansetron Ondansetron No 1{table QD Ondansetro 4 MG 4 MG t_on_th n 4 MG e_tongu e_and_a llow_to _dissol ve} Levothyroxi Levothyroxi No QD Levothyrox ne Sodium ne Sodium ine Sodium 25 MCG 25 MCG 25 MCG Lisinopril- Lisinopril- No 1{table QD Lisinopril hydroCHLORO hydroCHLORO t} -hydroCHLO thiazide thiazide ROthiazide 20-12.5 MG 20-12.5 MG 20-12.5 MG Lovastatin Lovastatin No QD Lovastatin 20 MG 20 MG 20 MG Combigan Combigan No Combigan [place] No 1{table QD [place] Thyroid 30 Thyroid 30 t_on_an Thyroid 30 MG MG _empty_ MG stomach } Exemestane Exemestane No Exemestane Ondansetron Ondansetron No 1{table QD Ondansetro 4 MG 4 MG t_on_th n 4 MG e_tongu e_and_a llow_to _dissol ve} Combigan Combigan No Combigan Ondansetron Ondansetron No 1{table QD Ondansetro 4 MG 4 MG t_on_th n 4 MG e_tongu e_and_a llow_to _dissol ve} [facility] No [place] Thyroid 30 Thyroid 30 Thyroid 30 MG MG MG Exemestane Exemestane No Exemestane Levothyroxi Levothyroxi No QD Levothyrox ne Sodium ne Sodium ine Sodium 25 MCG 25 MCG 25 MCG Lovastatin Lovastatin No QD Lovastatin 20 MG 20 MG 20 MG Lisinopril- Lisinopril- No 1{table QD Lisinopril hydroCHLORO hydroCHLORO t} -hydroCHLO thiazide thiazide ROthiazide 10-12.5 MG 10-12.5 MG 10-12.5 MG Combigan Combigan No Combigan Lovastatin Lovastatin No QD Lovastatin 20 MG 20 MG 20 MG Ondansetron Ondansetron No 1{table QD Ondansetro 4 MG 4 MG t_on_th n 4 MG e_tongu e_and_a llow_to _dissol ve} [place] No [place] Thyroid 30 Thyroid 30 Thyroid 30 MG MG MG [place] No 1{table QD [place] Thyroid 30 Thyroid 30 t_on_an Thyroid 30 MG MG _empty_ MG stomach } Lisinopril- Lisinopril- No 1{table QD Lisinopril hydroCHLORO hydroCHLORO t} -hydroCHLO thiazide thiazide ROthiazide 20-12.5 MG 20-12.5 MG 20-12.5 MG Exemestane Exemestane No Exemestane Lisinopril- Lisinopril- No Lisinopril hydroCHLORO hydroCHLORO -hydroCHLO thiazide thiazide ROthiazide 10-12.5 MG 10-12.5 MG 10-12.5 MG Levothyroxi Levothyroxi No QD Levothyrox ne Sodium ne Sodium ine Sodium 25 MCG 25 MCG 25 MCG Exemestane Exemestane No Exemestane [facility] No 1{table QD [place] Thyroid 30 Thyroid 30 t_on_an Thyroid 30 MG MG _empty_ MG stomach } [facility] Thyroid 30 Thyroid 30 Thyroid 30 MG MG MG Lisinopril- Lisinopril- No 1{table QD Lisinopril hydroCHLORO hydroCHLORO t} -hydroCHLO thiazide thiazide ROthiazide 20-12.5 MG 20-12.5 MG 20-12.5 MG Levothyroxi Levothyroxi No QD Levothyrox ne Sodium ne Sodium ine Sodium 25 MCG 25 MCG 25 MCG Lisinopril- Lisinopril- No QD Lisinopril hydroCHLORO hydroCHLORO -hydroCHLO thiazide thiazide ROthiazide 10-12.5 MG 10-12.5 MG 10-12.5 MG Lovastatin Lovastatin No Lovastatin 20 mg 20 mg 20 mg Combigan Combigan No [facility] Ondansetron Ondansetron No 1{table QD Ondansetro 4 MG 4 MG t_on_th n 4 MG e_tongu e_and_a llow_to _dissol ve} [facility] Thyroid 30 Thyroid 30 Thyroid 30 MG MG MG Lisinopril- Lisinopril- No 1{table QD Lisinopril hydroCHLORO hydroCHLORO t} -hydroCHLO thiazide thiazide ROthiazide 20-12.5 MG 20-12.5 MG 20-12.5 MG Exemestane Exemestane No Exemestane Lovastatin Lovastatin No Lovastatin 20 mg 20 mg 20 mg Ondansetron Ondansetron No 1{table QD Ondansetro 4 MG 4 MG t_on_th n 4 MG e_tongu e_and_a llow_to _dissol ve} Combigan Combigan No [facility] No 1{table QD [place] Thyroid 30 Thyroid 30 t_on_an Thyroid 30 MG MG _empty_ MG stomach } Levothyroxi Levothyroxi No QD Levothyrox ne Sodium ne Sodium ine Sodium 25 MCG 25 MCG 25 MCG Lisinopril- Lisinopril- No QD Lisinopril hydroCHLORO hydroCHLORO -hydroCHLO thiazide thiazide ROthiazide 10-12.5 MG 10-12.5 MG 10-12.5 MG Lovastatin Lovastatin No QD Lovastatin 20 MG 20 MG 20 MG [place] No 1{table QD [place] Thyroid 30 Thyroid 30 t_on_an Thyroid 30 MG MG _empty_ MG stomach } Lisinopril- Lisinopril- No 1{table QD Lisinopril hydroCHLORO hydroCHLORO t} -hydroCHLO thiazide thiazide ROthiazide 20-12.5 MG 20-12.5 MG 20-12.5 MG Exemestane Exemestane No Exemestane Lovastatin Lovastatin No Lovastatin 20 mg 20 mg 20 mg Levothyroxi Levothyroxi No Levothyrox ne Sodium ne Sodium ine Sodium 25 MCG 25 MCG 25 MCG Combigan Combigan No Combigan Lisinopril- Lisinopril- No QD Lisinopril hydroCHLORO hydroCHLORO -hydroCHLO thiazide thiazide ROthiazide 10-12.5 MG 10-12.5 MG 10-12.5 MG [facility] No [place] Thyroid 30 Thyroid 30 Thyroid 30 MG MG MG Ondansetron Ondansetron No 1{table QD Ondansetro 4 MG 4 MG t_on_th n 4 MG e_tongu e_and_a llow_to _dissol ve} Lovastatin Lovastatin No QD Lovastatin 20 MG 20 MG 20 MG Ondansetron Ondansetron No 1{table QD Ondansetro 4 MG 4 MG t_on_th n 4 MG e_tongu e_and_a llow_to _dissol ve} Exemestane Exemestane No Exemestane Lovastatin Lovastatin No QD Lovastatin 20 MG 20 MG 20 MG Lovastatin Lovastatin No Lovastatin 20 mg 20 mg 20 mg Lisinopril- Lisinopril- No 1{table QD Lisinopril hydroCHLORO hydroCHLORO t} -hydroCHLO thiazide thiazide ROthiazide 20-12.5 MG 20-12.5 MG 20-12.5 MG Levothyroxi Levothyroxi No Levothyrox ne Sodium ne Sodium ine Sodium 25 MCG 25 MCG 25 MCG Lisinopril- Lisinopril- No QD Lisinopril hydroCHLORO hydroCHLORO -hydroCHLO thiazide thiazide ROthiazide 10-12.5 MG 10-12.5 MG 10-12.5 MG [facility] No [place] Thyroid 30 Thyroid 30 Thyroid 30 MG MG MG Combigan Combigan No Combigan Vitamin B6 Vitamin B6 No Vitamin B6 Vitamin B12 Vitamin B12 No 1{table QD Vitamin 1000 MCG 1000 MCG t} B12 1000 MCG CoQ10 100 CoQ10 100 No 1{capsu QD CoQ10 100 MG MG le_with MG _a_meal } Exemestane Exemestane No Exemestane Cranberry Cranberry No Cranberry Lisinopril- Lisinopril- No 1{table QD Lisinopril hydroCHLORO hydroCHLORO t} -hydroCHLO thiazide thiazide ROthiazide 20-12.5 MG 20-12.5 MG 20-12.5 MG [facility] No [place] Thyroid 30 Thyroid 30 Thyroid 30 MG MG MG Multi Multi No Multi Vitamin Vitamin Vitamin Lovastatin Lovastatin No Lovastatin 20 MG 20 MG 20 MG Combigan Combigan No Combigan Ondansetron Ondansetron No 1{table QD Ondansetro 4 MG 4 MG t_on_ n 4 MG e_tongu e_and_a llow_to _dissol ve} Lisinopril- Lisinopril- No Lisinopril hydroCHLORO hydroCHLORO -hydroCHLO thiazide thiazide ROthiazide 20-12.5 mg 20-12.5 mg 20-12.5 mg Biotin 1000 Biotin 1000 No Biotin MCG MCG 1000 MCG Levothyroxi Levothyroxi No QD Levothyrox ne Sodium ne Sodium ine Sodium 25 MCG 25 MCG 25 MCG Levothyroxi Levothyroxi No Levothyrox ne Sodium ne Sodium ine Sodium 25 MCG 25 MCG 25 MCG Vitamin D3 Vitamin D3 No Vitamin D3 250 MCG 250 MCG 250 MCG (58003 UT) (25490 UT) (64687 UT) Stool Stool No 1{table QD Stool Softener Softener t_as_ne Softener 100 MG 100 MG eded} 100 MG Lutein-Zeax Lutein-Zeax No Lutein-Oz anthin 25-5 anthin 25-5 xanthin MG MG 25-5 MG Lovastatin Lovastatin No QD Lovastatin 20 MG 20 MG 20 MG [facility] No 1{table QD [place] Thyroid 30 Thyroid 30 t_on_an Thyroid 30 MG MG _empty_ MG stomach } Probiotic Probiotic No Probiotic Vitamin B6 Vitamin B6 No Vitamin B6 Vitamin B12 Vitamin B12 No 1{table QD Vitamin 1000 MCG 1000 MCG t} B12 1000 MCG Immunizations Ordered Immunization Filled Immunization Date Status Commen ts Source Name Name Adacel (Tdap) Adacel (Tdap) 2021-12-25 [facility] Adacel (Tdap) Adacel (Tdap) 2021-12-25 Completed [facility] 10:09[facility]00 [facility] Adacel (Tdap) Adacel (Tdap) 2021-12-25 Completed [facility] 10:09:00 [facility] Adacel (Tdap) Adacel (Tdap) 2021-12-25 Completed [facility] - 10:09:00 [facility] Adacel (Tdap) Adacel (Tdap) 2021-12-25 Completed [facility] - 10:09:00 [facility] Adacel (Tdap) Adacel (Tdap) 2021-12-25 Completed [facility] 10:09:00 [facility] Adacel (Tdap) Adacel (Tdap) 2021-12-25 Completed [facility] 10:09:00 [facility] Adacel (Tdap) Adacel (Tdap) 2021-12-25 Completed [facility] 10:09:00 [facility] FluAD FluAD 2020-04-02 [facility] 09[facility] FluAD FluAD 2020-04-02 [facility] - 09:59:00 [facility] FluAD FluAD 2020-04-02 [facility] 09:59:00 [facility] FluAD FluAD 2020-04-02 [facility] - 09:59:00 [facility] FluAD FluAD 2020-04-02 [facility]pleted [facility] - 09:59:00 [facility] FluAD FluAD 2020-04-02 [facility]pleted [facility] - 09:59:00 [facility] FluAD FluAD 2020-04-02 [facility]pleted [facility] - 09:59:00 [facility] FluAD FluAD 2020-04-02 [facility]pleted [facility] - 09:59:00 [facility] FluAD FluAD 2020-04-02 [facility]pleted [facility] - 09:59:00 [facility] FluAD FluAD 2020-04-02 [facility]pleted [facility] - 09:59:00 [facility] FluAD FluAD 2020-04-02 [facility]pleted [facility] - 09:59:00 [facility] FluAD FluAD 2020-04-02 [facility]pleted [facility] - 09:59:00 [facility] FluAD FluAD 2020-04-02 [facility]pleted [facility] - 09:59:00 [facility] Prevnar 13 -Pneumonia Prevnar 13 2018-10-28 Completed [facility] - Vaccine -Pneumonia Vaccine 15:41:00 [facility] Prevnar 13 -Pneumonia Prevnar 13 2018-10-28 Completed [facility] - Vaccine -Pneumonia Vaccine 15:41:00 [facility] Prevnar 13 -Pneumonia Prevnar 13 2018-10-28 Completed [facility] - Vaccine -Pneumonia Vaccine 15:41:00 [facility] Prevnar 13 -Pneumonia Prevnar 13 2018-10-28 Completed [facility] - Vaccine -Pneumonia Vaccine 15:41:00 [facility] Prevnar 13 -Pneumonia Prevnar 13 2018-10-28 Completed [facility] - Vaccine -Pneumonia Vaccine 15:41:00 [facility] Prevnar 13 -Pneumonia Prevnar 13 2018-10-28 Completed [facility] - Vaccine -Pneumonia Vaccine 15:41:00 [facility] Prevnar 13 -Pneumonia Prevnar 13 2018-10-28 Completed [facility] - Vaccine -Pneumonia Vaccine 15:41:00 [facility] Prevnar 13 -Pneumonia Prevnar 13 2018-10-28 Completed [facility] - Vaccine -Pneumonia Vaccine 15:41:00 [facility] Prevnar 13 -Pneumonia Prevnar 13 2018-10-28 Completed [facility] - Vaccine -Pneumonia Vaccine 15:41:00 [facility] Prevnar 13 -Pneumonia Prevnar 13 2018-10-28 Completed [facility] - Vaccine -Pneumonia Vaccine 15:41:00 [facility] Prevnar 13 -Pneumonia Prevnar 13 2018-10-28 Completed [facility] - Vaccine -Pneumonia Vaccine 15:41:00 [facility] Prevnar 13 -Pneumonia Prevnar 13 2018-10-28 Completed [facility] - Vaccine -Pneumonia Vaccine 15:41:00 [facility] Prevnar 13 -Pneumonia Prevnar 13 2018-10-28 Completed [facility] - Vaccine -Pneumonia Vaccine 15:41:00 [facility] Shingrix Shingrix 2017-10-30 [facility] - 15:54:00 [facility] Shingrix Shingrix 2017-10-30 [facility]pleted [facility] - 15:54:00 [facility] Shingrix Shingrix 2017-10-30 [facility]pleted [facility] - 15:54:00 [facility] Shingrix Shingrix 2017-10-30 Completed [facility] - 15:54:00 [facility] Shingrix Shingrix 2017-10-30 Completed [facility] - 15:54:00 [facility] Shingrix Shingrix 2017-10-30 Completed [facility] - 15:54:00 [facility] Shingrix Shingrix 2017-10-30 Completed [facility] - 15:54:00 [facility] Shingrix Shingrix 2017-10-30 Completed [facility] - 15:54:00 [facility] Shingrix Shingrix 2017-10-30 Completed [facility] - 15:54:00 [facility] Shingrix Shingrix 2017-10-30 Completed [facility] - 15:54:00 [facility] Shingrix Shingrix 2017-10-30 Completed [facility] - 15[facility]54:00 [facility] Shingrix Shingrix 2017-10-30 Completed [facility] - 15:54:00 [facility] Shingrix Shingrix 2017-10-30 Completed [facility] - 15:54:00 [facility] Pneumovax (PPSV23) Pneumovax (PPSV23) 2016-10-28 Completed [facility] - 15:40:00 [facility] Pneumovax (PPSV23) Pneumovax (PPSV23) 2016-10-28 Completed [facility] - 15:40:00 [facility] Pneumovax (PPSV23) Pneumovax (PPSV23) 2016-10-28 [facility]00 [facility] Pneumovax (PPSV23) Pneumovax (PPSV23) 2016-10-28 [facility]pleted [facility] 15:[facility]00 [facility] Pneumovax (PPSV23) Pneumovax (PPSV23) 2016-10-28 Completed [facility] - 15:40:00 [facility] Pneumovax (PPSV23) Pneumovax (PPSV23) 2016-10-28 [facility]pleted [facility] 15:40:00 [facility] Pneumovax (PPSV23) Pneumovax (PPSV23) 2016-10-28 [facility]pleted [facility] 15:40:00 [facility] Pneumovax (PPSV23) Pneumovax (PPSV23) 2016-10-28 Completed [facility] 15:40:00 [facility] Pneumovax (PPSV23) Pneumovax (PPSV23) 2016-10-28 [facility]pleted [facility] 15:40:00 [facility] Pneumovax (PPSV23) Pneumovax (PPSV23) 2016-10-28 [facility]pleted [facility] 15:40:00 [facility] Pneumovax (PPSV23) Pneumovax (PPSV23) 2016-10-28 Completed [facility] 15:40:00 [facility] Pneumovax (PPSV23) Pneumovax (PPSV23) 2016-10-28 Completed [facility] 15:40:00 [facility] Pneumovax (PPSV23) Pneumovax (PPSV23) 2016-10-28 Completed [facility] 15:40:00 [facility] Pneumococcal 2012-03-28 Completed [facility] Colle ge Polysaccharide 00:00:00 of Medicin e Pneumococcal 2012-03-28 Completed [facility]le [facility] Polysaccharide 00:00:00 of Medicin e Shingrix Shingrix 2011-10-31 Completed [facility] - 15:54:00 [facility] Shingrix Shingrix 2011-10-31 Completed [facility] - 15:54:00 [facility] Shingrix Shingrix 2011-10-31 Completed [facility] - 15:54:00 [facility] Shingrix Shingrix 2011-10-31 Completed [facility] - 15:54:00 [facility] Shingrix Shingrix 2011-10-31 Completed [facility] - 15:54:00 [facility] Shingrix Shingrix 2011-10-31 Completed [facility] - 15:54:00 [facility] Shingrix Shingrix 2011-10-31 Completed [facility] - 15:54:00 [facility] Shingrix Shingrix 2011-10-31 Completed [facility] - 15:54:00 [facility] Shingrix Shingrix 2011-10-31 Completed [facility] - 15:54:00 [facility] Shingrix Shingrix 2011-10-31 Completed [facility] - 15:54:00 [facility] Shingrix Shingrix 2011-10-31 Completed [facility] - 15:54:00 [facility] Shingrix Shingrix 2011-10-31 Completed [facility] - 15:54:00 [facility] Shingrix Shingrix 2011-10-31 Completed [facility] 15:54:00 [facility] Adacel (Tdap) Adacel (Tdap) 2011-10-29 [facility] Adacel (Tdap) Adacel (Tdap) 2011-10-29 [facility] Adacel (Tdap) Adacel (Tdap) 2011-10-29 [facility] Adacel (Tdap) Adacel (Tdap) 2011-10-29 [facility] Adacel (Tdap) Adacel (Tdap) 2011-10-29 [facility] Adacel (Tdap) Adacel (Tdap) 2011-10-29 [facility] Adacel (Tdap) Adacel (Tdap) 2011-10-29 [facility] Adacel (Tdap) Adacel (Tdap) 2011-10-29 [facility]pleted [facility]00 [facility] Adacel (Tdap) Adacel (Tdap) 2011-10-29 [facility]pleted [facility]00 [facility] Adacel (Tdap) Adacel (Tdap) 2011-10-29 [facility] Adacel (Tdap) Adacel (Tdap) 2011-10-29 [facility] Adacel (Tdap) Adacel (Tdap) 2011-10-29 [facility] Adacel (Tdap) Adacel (Tdap) 2011-10-29 [facility]00 [facility] Pneumovax (PPSV23) Pneumovax (PPSV23) 2011-10-29 Completed [facility] - 15:39:00 [facility] Pneumovax (PPSV23) Pneumovax (PPSV23) 2011-10-29 Completed [facility] 15:39:00 [facility] Pneumovax (PPSV23) Pneumovax (PPSV23) 2011-10-29 Completed [facility] 15:39:00 [facility] Pneumovax (PPSV23) Pneumovax (PPSV23) 2011-10-29 Completed [facility] 15:39:00 [facility] Pneumovax (PPSV23) Pneumovax (PPSV23) 2011-10-29 Completed [facility] 15:39:00 [facility] Pneumovax (PPSV23) Pneumovax (PPSV23) 2011-10-29 Completed [facility] 15:39:00 [facility] Pneumovax (PPSV23) Pneumovax (PPSV23) 2011-10-29 Completed [facility] 15:39:00 [facility] Pneumovax (PPSV23) Pneumovax (PPSV23) 2011-10-29 Completed [facility] 15:39:00 [facility] Pneumovax (PPSV23) Pneumovax (PPSV23) 2011-10-29 Completed [facility] - 15:39:00 [facility] Pneumovax (PPSV23) Pneumovax (PPSV23) 2011-10-29 Completed [facility] - 15:39:00 [facility] Pneumovax (PPSV23) Pneumovax (PPSV23) 2011-10-29 Completed [facility] - 15:39:00 [facility] Pneumovax (PPSV23) Pneumovax (PPSV23) 2011-10-29 Completed [facility] - 15:39:00 [facility] Pneumovax (PPSV23) Pneumovax (PPSV23) 2011-10-29 Completed [facility] 15:39:00 [facility] Adacel (Tdap) Adacel (Tdap) 1998-10-28 Completed [facility]00 [facility] Adacel (Tdap) Adacel (Tdap) 1998-10-28 [facility]pleted [facility]00 [facility] Adacel (Tdap) Adacel (Tdap) 1998-10-28 [facility] Adacel (Tdap) Adacel (Tdap) 1998-10-28 [facility]00 [facility] Adacel (Tdap) Adacel (Tdap) 1998-10-28 [facility]pleted [facility]:38[facility]00 [facility] Adacel (Tdap) Adacel (Tdap) 1998-10-28 [facility]pleted [facility]:38[facility]00 [facility] Adacel (Tdap) Adacel (Tdap) 1998-10-28 [facility]pleted [facility]:38[facility]00 [facility] Adacel (Tdap) Adacel (Tdap) 1998-10-28 [facility]pleted [facility]:38[facility]00 [facility] Adacel (Tdap) Adacel (Tdap) 1998-10-28 [facility]pleted [facility]00 [facility] Adacel (Tdap) Adacel (Tdap) 1998-10-28 [facility]pleted [facility]00 [facility] Adacel (Tdap) Adacel (Tdap) 1998-10-28 [facility]pleted [facility]00 [facility] Adacel (Tdap) Adacel (Tdap) 1998-10-28 [facility]pleted [facility]00 [facility] Adacel (Tdap) Adacel (Tdap) 1998-10-28 [facility] Hepatitis B (adult) Hepatitis B (adult) 1995-10-29 Completed [facility] - 15:36:00 [facility] Hepatitis B (adult) Hepatitis B (adult) 1995-10-29 Completed [facility] - 15:36:00 [facility] Hepatitis B (adult) Hepatitis B (adult) 1995-10-29 Completed [facility] - 15:36:00 [facility] Hepatitis B (adult) Hepatitis B (adult) 1995-10-29 Completed [facility] - 15:36:00 [facility] Hepatitis B (adult) Hepatitis B (adult) 1995-10-29 Completed [facility] - 15:36:00 [facility] Hepatitis B (adult) Hepatitis B (adult) 1995-10-29 Completed [facility] - 15:36:00 [facility] Hepatitis B (adult) Hepatitis B (adult) 1995-10-29 Completed [facility] - 15:36:00 [facility] Hepatitis B (adult) Hepatitis B (adult) 1995-10-29 Completed [facility] - 15:36:00 [facility] Hepatitis B (adult) Hepatitis B (adult) 1995-10-29 Completed [facility] - 15:36:00 [facility] Hepatitis B (adult) Hepatitis B (adult) 1995-10-29 Completed [facility] - 15:36:00 [facility] Hepatitis B (adult) Hepatitis B (adult) 1995-10-29 Completed [facility] - 15:36:00 [facility] Hepatitis B (adult) Hepatitis B (adult) 1995-10-29 Completed [facility] - 15:36:00 [facility] Hepatitis B (adult) Hepatitis B (adult) 1995-10-29 Completed [facility] - 15:36:00 [facility] Vital Signs Vital Name Observation Time Observation Value Comments Source height 2022-07-12 10:40:00 66 [in_i] [facility] weight 2022-07-12 10:40:00 189.4 [lb_av] [facility] temperature 2022-07-12 10:40:00 97.5 [degF] [facility] bmi 2022-07-12 10:40:00 30.57 kg/m2 [facility] oximetry 2022-07-12 10:40:00 98 % [facility] respiratory rate 2022-07-12 10:40:00 17 /min Comm on [facility] blood pressure 2022-07-12 10:40:00 136 mm[Hg] [facility] - systolic [facility] blood pressure 2022-07-12 10:40:00 76 mm[Hg] Common [facility] - diastolic [facility] height 2022-03-22 15:10:00 66 [in_i] [facility] weight 2022-03-22 15:10:00 191.2 [lb_av] [facility] temperature 2022-03-22 15:10:00 97.9 [degF] [facility] bmi 2022-03-22 15:10:00 30.86 kg/m2 [facility] oximetry 2022-03-22 15:10:00 98 % [facility] respiratory rate 2022-03-22 15:10:00 18 /min Comm on [facility] blood pressure 2022-03-22 15:10:00 132 mm[Hg] Common [facility] - systolic [facility] blood pressure 2022-03-22 15:10:00 62 mm[Hg] Common [facility] - diastolic [facility] height 2022-01-11 10:00:00 66 [in_i] Common [facility] weight 2022-01-11 10:00:00 189.5 [lb_av] Common [facility] temperature 2022-01-11 10:00:00 97.7 [degF] [facility] bmi 2022-01-11 10:00:00 30.58 kg/m2 [facility] oximetry 2022-01-11 10:00:00 97 % [facility] respiratory rate 2022-01-11 10:00:00 17 /min Comm on [facility] blood pressure 2022-01-11 10:00:00 137 mm[Hg] Common [facility] - systolic [facility] blood pressure 2022-01-11 10:00:00 67 mm[Hg] Common [facility] - diastolic [facility] height 2022-01-11 10:30:00 66 [in_i] Common [facility] weight 2022-01-11 10:30:00 189.5 [lb_av] [facility] temperature 2022-01-11 10:30:00 97.7 [degF] [facility]-11 10:30:00 30.58 kg/m2 [facility] S [facility] oximetry 2022-01-11 10:30:00 97 % [facility] respiratory rate 2022-01-11 10:30:00 17 /min Comm on [facility] blood pressure 2022-01-11 10:30:00 137 mm[Hg] [facility] - systolic [facility] blood pressure 2022-01-11 10:30:00 67 mm[Hg] [facility] - diastolic [facility] height 2021-07-14 14:50:00 66 [in_i] Common [facility] weight 2021-07-14 14:50:00 188.7 [lb_av] [facility] temperature 2021-07-14 14:50:00 97.3 [degF] [facility] bmi 2021-07-14 14:50:00 30.45 kg/m2 [facility] oximetry 2021-07-14 14:50:00 97 % [facility] respiratory rate 2021-07-14 14:50:00 16 /min [facility] - [facility] blood pressure 2021-07-14 14:50:00 135 mm[Hg] [facility] - systolic [facility] blood pressure 2021-07-14 14:50:00 72 mm[Hg] [facility] - diastolic [facility] WEIGHT 2020-07-01 11:44:00 86.2 kg WEIGHT 2020-04-16 10:40:00 84.3 kg Procedures Procedure Date / Time Performed Performing Clinician [facility] e SHARP VISUAL FIELD 2022-03-09 10:08:13 [facility] BOTH EYES [facility] SHARP VISUAL FIELD 2020-03-13 15:20:05 [facility] OU BOTH EYES [facility] OPTOS FUNDUS PHOTOS - 2019-11-06 16:30:40 [facility] BOTH EYE [facility] Plan of Care Planned Activity Planned Date Details Comments Source Future Scheduled MEDICARE AWV [facility] [employer] Test (Initial) [code = of Medicin e MEDICARE AWV (Initial)] Future Scheduled FALL SCREEN [code = [employer] FALL SCREEN] of Medicine Future Scheduled OSTEOPOROSIS [facility] Saleem [employer]ge Test SCREENING [code = of Medicin e OSTEOPOROSIS SCREENING] Future Scheduled COLON CANCER [facility] Saleem ege Test SCREENING: of Medicine COLONOSCOPY [code = COLON CANCER SCREENING: COLONOSCOPY] Future Scheduled FLU VACCINE > 6 [facility] C ollege Test MONTHS [code = FLU of Medici ne VACCINE > 6 MONTHS] Future Scheduled TETANUS SHOT (ADULT) [facility] College Test [code = TETANUS SHOT of Medi cine (ADULT)] Future Scheduled MEDICARE AWV [facility] Test (Initial) [code = of Medicin e MEDICARE AWV (Initial)] Future Scheduled FALL SCREEN [code = [employer] FALL SCREEN] of Medicine Future Scheduled OSTEOPOROSIS [facility] [employer] Test SCREENING [code = of Medicin e OSTEOPOROSIS SCREENING] Future Scheduled PREVNAR >= 65 [facility] Col lege Test (PCV13) [code = of Medicine PREVNAR >= 65 (PCV13)] Future Scheduled COLON CANCER [facility] Saleem [employer]ge Test SCREENING: of Medicine COLONOSCOPY [code = COLON CANCER SCREENING: COLONOSCOPY] Future Scheduled FLU VACCINE > 6 [facility] C [facility]lege Test MONTHS [code = FLU of Medici ne VACCINE > 6 MONTHS] Future Scheduled TETANUS SHOT (ADULT) [facility] College Test [code = TETANUS SHOT of Medi cine (ADULT)] Future Scheduled OCT, OPTIC NERVE - 1 Occurrences [employer] Test OU - BOTH EYES [code starting 03/13/2020 of Medicine = 58696] until 03/13/2021 Future Scheduled SHARP VISUAL [address] [facility] Test FIELD - OU - BOTH starting 11/06/2019 of Medicine EYES [code = 40960] until 11/05/2020 Encounters Start End Encounter Admission Attending Care Care Encounter Source Date/Time Date/Time Type Type Clinicians Facility Department ID 2022-08-08 Outpatient SYSTEM, SEGUN CAST [id number] 15:26:53 PROVIDER Eliel osborn 2022-07-08 [facility] [id number] Common 09:30:01 Jeffry [id number] [facility] 2022-01-10 [facility] [id number] Common 14:22:33 Jeffry [id number] [facility] 2021-09-22 [facility] [id number] Common 11:59:50 Jeffry [id number] [facility] 2021-09-22 [facility] [id number] Common 11:19:35 Jeffry [id number] [facility] 2021-09-22 [facility] [id number] Common 11:11:54 Jeffry [id number] [facility] 2020-02-18 Outpatient SEGUN FU MDA [id number] 14:29:04 LIGIA osborn 2020-02-18 Outpatient SEGUN FU MDA [id number] 14:29:04 LIGIA osborn 2022-08-17 2022-08-17 (TEL) [facility] [id number] Co mmon 00:00:00 00:00:00 [facility] 2022-07-19 2022-07-19 (TEL) STLMLC STLMLC [id number] Co mmon 00:00:00 00:00:00 [facility] 2022-07-13 2022-07-13 Outpatient MYLA [facility] [id number] [facility] 09:38:42 11:22:08 [facility] 2022-07-12 2022-07-12 OFFICE STLMLC STLMLC [id number] Co mmon 00:00:00 00:00:00 VISIT [facility] PT - CHI LEVEL 4 [facility] 2022-06-29 2022-06-29 Outpatient OBED [facility] [id number] [facility] 09:21:32 11:15:06 IRIS [facility] 2022-06-20 2022-06-20 Outpatient BRANDON HI MDA MDA [id number] 09:33:17 11:10:28 ELISSA osborn 2022-06-20 2022-06-20 Outpatient BRANDON HI MDA MDA [id number] 09:03:24 09:03:24 ELISSA osborn 2022-05-10 2022-05-10 Outpatient BRANDON SOLARES MDA MDA [id number] 08:52:31 10:26:37 SHALONDA osborn 2022-04-05 2022-04-05 (TEL) STLMLC STLMLC [id number] Co mmon 00:00:00 00:00:00 [facility] 2022-03-22 2022-03-22 OFFICE STLMLC STLMLC [id number] Co mmon 00:00:00 00:00:00 VISIT [facility] PT - CHI LEVEL 4 [facility] 2022-03-09 2022-03-09 Outpatient MYLA [facility] [id number] [facility] 09:41:48 11:08:14 [facility]EL [facility] 2022-02-18 2022-02-18 (TEL) STLMLC STLMLC [id number] Co mmon 00:00:00 00:00:00 [facility] 2022-01-11 2022-01-11 OFFICE STLMLC STLMLC [id number] Co mmon 00:00:00 00:00:00 [facility] PT - CHI LEVEL 4 [facility] 2022-01-11 2022-01-11 SUB ANNUAL STLMLC STLMLC [id number] Common 00:00:00 00:00:00 MCR [facility] WELLNESS - CHI VISIT [facility] 2022-01-03 2022-01-03 (TEL) STLMLC STLMLC [id number] Co mmon 00:00:00 00:00:00 [facility] - CHI [facility] 2021-10-27 2021-10-27 Outpatient WANG LANZA BCM [id number] [facility] 09:49:06 12:27:50 [facility] 2021-10-25 2021-10-25 (TEL) STLMLC STLMLC [id number] Co mmon 00:00:00 00:00:00 [facility] 2021-10-22 2021-10-22 (TEL) STLMLC STLMLC [id number] Co mmon 00:00:00 00:00:00 [facility] CHI [facility] 2021-07-21 2021-07-21 (TEL) STLMLC STLMLC [id number] Co mmon 00:00:00 00:00:00 [facility] CHI [facility] 2021-07-14 2021-07-14 OFFICE STLMLC STLMLC [id number] Co mmon 00:00:00 00:00:00 VISIT [facility] PT - CHI LEVEL 4 [facility] 2021-06-30 2021-06-30 Outpatient WANG CLAY BCM [id number] [facility] 09:31:42 11:30:24 [facility] 2021-05-31 2021-05-31 Outpatient BRANDON SQUIRES MDA MDA [id number] 09:14:45 10:38:31 IGNACIO osborn 2021-05-31 2021-05-31 Outpatient BRANDON SQUIRES MDA MDA [id number] 10:34:20 10:34:20 IGNACIO osborn 2021-05-27 2021-05-27 Outpatient BRANDON SOLARES, MDA MDA [id number] 10:24:07 12:23:13 SHALONDA osborn 2021-05-19 2021-05-19 Outpatient WANG LANZA BC [id number] [facility] 09:24:58 10:33:56 ISAEL Adhikari 2020-12-28 2020-12-28 Outpatient STLMLC STLMLC [id number] Common 00:00:00 00:00:00 [facility] 2020-12-28 2020-12-28 Outpatient STLMLC STLMLC [id number] Common 00:00:00 00:00:00 [facility] 2020 2020 Outpatient STLMLC STLMLC [id number] Common 00:00:00 00:00:00 [facility] 2020-10-17 2020-10-17 Outpatient STLMLC STLMLC [id number] Common 00:00:00 00:00:00 [facility] 2020-09-23 2020-09-23 Outpatient BRANDON DYKES, MDA MDA [id number] 00:00:00 00:00:00 ANDREA rossso anurag 2020-09-18 2020-09-18 Outpatient BRANDON DYKES, MDA MDA [id number] 00:00:00 00:00:00 ANDREA rossso anurag 2020-09-18 2020-09-18 Outpatient BRANDON DYKES, MDA MDA [id number] 00:00:00 00:00:00 ANDREA rossso anurag 2020-09-18 2020-09-18 Outpatient BRANDON DYKES, MDA MDA [id number] 00:00:00 00:00:00 ANDREA rossso anurag 2020-07-01 2020-07-01 Outpatient BRANDON HOLDERER, MDA MDA [id number] 09:43:27 23:59:00 PETEY osborn 2020-07-01 2020-07-01 Outpatient BRANDON HOLDERER, MDA MDA [id number] 11:10:32 12:42:03 PETEY osborn 2020-06-25 2020-06-25 Outpatient STLMLC STLMLC [id number] Common 00:00:00 00:00:00 [facility] 2020-04-16 2020-04-16 Outpatient BRANDON SOLARES MDA MDA [id number] 10:18:36 11:43:37 SHALONDA osborn 2020-03-13 2020-03-13 Office Myla Isael BCM [id number] 09:32:39 10:07:39 Visit Field-Hrt, Visual AMBULATOR 350.1.13.2 1 Y [id number] [id number] 300 2020-03-13 2020-03-13 Office Myla, Isael BCM [id number] [facility] 09:32:39 10:07:39 Visit Field-Hrt, Visual AMBULATOR 350.1.13.2 1 College Y 0.2.7.2.686 of [id number] Medi faina 300 e 2020-03-09 2020-03-09 [facility] [id number] Common 09:40:00 09:40:[address] [facility] 2020-02-18 2020-02-18 Outpatient BRANDON DYKES SEGUN MDA [id number] 08:49:37 23:59:00 ANDREA osborn 2020-02-18 2020-02-18 Outpatient BRANDON PARK MDA MDA [id number] 08:20:26 08:48:00 SAVI osborn 2020-02-17 2020-02-17 Outpatient BRANDON DYKES MDA MDA [id number] 09:06:54 23:59:00 ANDREA osborn 2019-12-26 2019-12-26 [facility] [id number] Common 09:00:00 09:00:[address] [facility] 2019-12-26 2019-12-26 [facility] [id number] Common 09:00:00 09:00:[address] [facility] 2019-12-12 2019-12-12 Out[facility] [id number] Common 10:20:00 10:20:00 t [employer] [address] [facility] 2019-11-06 2019-11-06 Office Isael Lanza BCM [id number] 09:56:06 10:16:06 Visit 3, Ods AMBULATOR 350.1.13.21 Y 0.2.7.2.686 [id number] 2019-11-06 2019-11-06 Office Isael Lanza BCM [id number] [facility] 09:56:06 10:16:06 Visit 3, Ods AMBULATOR 350.1.13.21 College Y 0.2.7.2.686 of [id number] [facility] 300 e 2019-10-30 2019-10-30 Out[facility] [id number] Common 13:30:00 13:30:00 t [employer] [facility] it Drive [facility] Results Test Description Test Time Test Comments Results Result Sour e Comments SHARP VISUAL 2020-03-13 VF Interpretation Ba ylor FIELD - OU - BOTH 16:26:45 OD OS [employer] E[employer] Good Good Defect Medicine Severe loss S > I None Progression no no OPTOS FUNDUS 2019-11-06 OU - good qualityOU [facility] PHOTOS - OU - 17:20:29 - cupping with PPA, Co llege of BOTH EYE myopic changesOD - Medici ne temp scarring, cryo
[2022-10-22 19:37] LABS: Urine Blood Trace-intact (Negative); Urine Glucose Negative (Negative); Urine Protein Negative (Negative); Urine Specific Gravity <=1.005 (1.005-1.030)
[2022-10-22] MEDS ORDERED: CEFTRIAXONE 1000 MG/VIAL ONE (19:40)
[2022-10-22] MEDS ORDERED: WATER FOR INJ,STERILE 10 ML ONE (19:41)
[2022-10-22 20:26] LABS: Urine Bacteria <20 /HPF (<20); Urine RBC <5 /HPF (None Seen)
== END 2022-10-22 20:05 | disposition home or self-care (01) ==
LOC: ER 18:58
DX: N39.0 Urinary tract infection, site not specified (principal); I10 Essential (primary) hypertension; Z88.1 Allergy status to other antibiotic agents; Z88.2 Allergy status to sulfonamides; Z88.3 Allergy status to other anti-infective agents; Z88.8 Allergy status to other drugs, medicaments and biological substances; Z91.048 Other nonmedicinal substance allergy status
CPT/HCPCS: 81003; 81015; 87086; 87088; 96372; 99283